=== PATIENT | female | born 1960 | race African-American/Black ===

== ENCOUNTER 2016-11-01 20:26 | Emergency (ER) | payer OTHER ==
[~2016-11-01] VITALS: Ht 157.5 cm; Wt 116.6 kg
--- NOTE | ~2016-11-01 | EKG ---
[place] [address] [facility] [place] [address] ELECTROCARDIOGRAM REPORT Name: PRITI MCLAUGHLIN [id number] Admission: 11/01/16 Attend Phys: Discharge: 11/02/16 Date of : 62 Report #: [id number] THIS REPORT FOR: //name// [facility] ED Test Date: 2016-11-01 Test Time: 20:34:52 Pat Name: PRITI MCLAUGHLIN Department: Room: Gender: F Community Development Coordinator: MZOOK : 1960 Requested By: Amber Painter Order Number: [id number] MD: Nagi Thompson Measurements Intervals [place] Rate: 79 P: 50 IN: 145 QRS: 19 QRSD: 83 T: 11 QT: 364 QTc: 418 Interpretive Statements Sinus rhythm No significant abnormality No previous ECG available for comparison Electronically Signed On 11-02-2016 8:35:11 CDT by Nagi Thompson [email or web address] <ELECTRONICALLY SIGNED> By: Nagi Thompson MD, [facility] 11/02/16 0835 2034 33 Nagi Thompson MD, FACC /EPI
[~2016-11-01 20:26] MED LIST: ASPIR 8181 M1 PO; ATACAND8 MG PO; BENADRYL25 MG PO; CADUET 5 MG-401 EACH PO; DOXYCYCLINE 10100 MG PO; HUMALOG100 UNIT/1 SUBQ; JANUMET 50-1,01 EACH PO; LANTUS100 UNIT/M SUBQ; MEDROLDOSEPACK PO; NEXIUM40 MG PO; NORCO 5-325 TA1 EACH PO; PEPCID20 MG PO; SERTRALINE HCL50 MG PO; TRAMADOL 50 MG50 MG PO
[2016-11-01 20:59] LABS: BASOPHILS 0.9 % (0.0-2.0); EOSINOPHILS 2.5 % (0.0-3.0); HEMATOCRIT 43.2 % (37.0-47.0); HEMOGLOBIN 14.8 gm/dL (12.0-15.0); LYMPHOCYTES 38.5 % (24.0-44.0); MCH 28.9 pg (26.0-34.0); MCHC 34.2 g/dL (28.0-37.0); MCV 84.3 fL (80.0-100.0); MONOCYTES 6.9 % (1.0-8.0); PLATELET COUNT 214 thou/uL (150-400); POLYS 51.2 % (36.0-66.0); RBC 5.13 mil/uL (4.20-5.00); RDW 14.7 % (10.5-14.5); WBC 5.8 thou/uL (4.0-11.0)
[2016-11-01 21:00] LABS: MANUAL DIFF NO
[2016-11-01 21:08] LABS: ANION GAP 7 mmol/L (7-16); BUN 12 mg/dL (7-18); CALCIUM 9.8 mg/dL (8.5-10.1); CHLORIDE 102 mmol/L (98-107); CO2 28 mmol/L (21-32); GLUCOSE 290 mg/dL (70-99); POTASSIUM 4.1 mmol/L (3.5-5.1); SODIUM 137 mmol/L (136-145)
[2016-11-01 21:15] LABS: ALBUMIN 3.2 g/dL (3.4-5.0); ALKALINE PHOSPHATASE 100 U/L (46-116); MAGNESIUM 1.5 mg/dL (1.8-2.4); SGOT 12 U/L (15-37); SGPT 23 U/L (30-65); TOTAL BILIRUBIN 0.2 mg/dL (<0.1-1.0); TOTAL PROTEIN 6.7 g/dL (6.4-8.2); TROPONIN-I < 0.04 ng/mL (<0.04-0.07)
== END 2016-11-02 00:30 | disposition home or self-care (01) ==
LOC: ER 20:26
PROVIDERS: Emergency Medicine
DX: E11.65 Type 2 diabetes mellitus with hyperglycemia (principal); E83.42 Hypomagnesemia; I95.1 Orthostatic hypotension; I25.2 Old myocardial infarction; Z88.8 Allergy status to other drugs, medicaments and biological substances; F17.210 Nicotine dependence, cigarettes, uncomplicated; F10.99 Alcohol use, unspecified with unspecified alcohol-induced disorder

== ENCOUNTER 2017-09-05 04:38 | Emergency (ER) | payer OTHER ==
[~2017-09-05] VITALS: Ht 157.5 cm; Wt 112.0 kg
--- NOTE | ~2017-09-05 | EKG ---
[place] [address] [place] [address] ELECTROCARDIOGRAM REPORT Name: PRITI MCLAUGHLIN Room #: [facility]anna[facility] [id number] Admission: 09/05/17 Attend Phys: Discharge: Date of : 62 Report #: [id number] THIS REPORT FOR: //name// [facility] ED Test Date: 2017-09-05 Test Time: 05:08:00 Pat Name: PRITI MCLAUGHLIN Department: Room: Gender: F Manager Of Training And Development: [facility] : 1960 Requested By: Rustam Whipple Order Number: [id number] MD: Nagi Thompson Measurements Intervals [place] Rate: 93 P: 47 [place]: 140 QRS: 16 QRSD: 82 T: 0 QT: 332 QTc: 413 Interpretive Statements Sinus rhythm Probable left atrial enlargement Borderline T wave abnormalities Compared to ECG 11/01/2016 20:34:52 No significant change was found Electronically Signed On 09-05-2017 7:54:10 CHAIRMAN EMERITUS by Nagi Thompson [email or web address] <ELECTRONICALLY SIGNED> By: Nagi Thompson MD, [facility] 09/05/17 0754 0508 0508 Nagi Thompson MD, FACC /EPI
[2017-09-05 05:05] LABS: URINE BILIRUBIN NEGATIVE (Negative); URINE BLOOD NEGATIVE (Negative); URINE CLARITY SL CLOUDY; URINE COLOR YELLOW; URINE GLUCOSE-RANDOM* 1+ (Negative); URINE KETONES NEGATIVE (Negative); URINE LEUKOCYTES-REFLEX NEGATIVE (Negative); URINE NITRITE-REFLEX NEGATIVE (Negative); URINE PROTEIN (DIPSTICK) TRACE (Negative); URINE UROBILINOGEN 0.2 E.U./dl (0.2-1.0)
[2017-09-05 05:39] LABS: ABSOLUTE NEUTROPHILS 4.1 thou/uL (1.4-8.2); BASOPHILS 0.9 % (0.0-2.0); EOSINOPHILS 1.7 % (0.0-3.0); HEMATOCRIT 44.6 % (37.0-47.0); HEMOGLOBIN 15.3 gm/dL (12.0-15.0); LYMPHOCYTES 35.8 % (24.0-44.0); MCH 28.8 pg (26.0-34.0); MCHC 34.2 g/dL (28.0-37.0); MCV 84.1 fL (80.0-100.0); MONOCYTES 6.6 % (1.0-8.0); PLATELET COUNT 254 thou/uL (150-400); RDW 14.7 % (10.5-14.5); WBC 7.5 thou/uL (4.0-11.0)
[2017-09-05 05:51] LABS: ANION GAP 9 mmol/L (7-16); BUN 15 mg/dL (7-18); CHLORIDE 103 mmol/L (98-107); CO2 29 mmol/L (21-32); CREATININE 1.3 mg/dL (0.6-1.0); GLUCOSE 258 mg/dL (74-106); POTASSIUM 3.7 mmol/L (3.5-5.1); SODIUM 141 mmol/L (136-145)
[2017-09-05 05:58] LABS: ALBUMIN 3.3 g/dL (3.4-5.0); LIPASE 86 U/L (73-393); SGOT 14 U/L (15-37); SGPT 23 U/L (30-65); TOTAL BILIRUBIN 0.3 mg/dL (<0.1-1.0); TROPONIN-I < 0.04 ng/mL (<0.06)
[2017-09-05] MEDS ORDERED: OMEPRAZOLE 20 M20 M1 PO (07:25)
[2017-09-05 07:55] VITALS: BP 118/80
[2017-12-30] MEDS ORDERED: SERTRALINE HCL50 MG PO (03:01)
[2017-12-30] MEDS ORDERED: LIDOCAINE VISC100 ML PO (06:14)
[2017-12-30] MEDS ORDERED: MAALOX ADVANCE355 ML PO (06:14)
[2017-12-30] MEDS ORDERED: ZOFRAN ODT4 MG PO (06:14)
[2018-03-13] MEDS ORDERED: LEVEMIR SUBQ (11:30)
[2018-03-22] MEDS ORDERED: ACYCLOVIR 800800 MG PO (04:52)
[2018-03-22] MEDS ORDERED: CARAFATE 1 GM TA1 G1 PO (04:52)
[2018-04-16] MEDS ORDERED: ANTIVERT25 MG PO (13:53)
[2018-04-16] MEDS ORDERED: ZOFRAN ODT8 MG PO (13:53)
== END 2017-09-05 07:56 | disposition home or self-care (01) ==
LOC: ER 04:38
PROVIDERS: Emergency Medicine
DX: R10.13 Epigastric pain (principal); E11.9 Type 2 diabetes mellitus without complications; I10 Essential (primary) hypertension; M19.90 Unspecified osteoarthritis, unspecified site; Z91.041 Radiographic dye allergy status; Z88.8 Allergy status to other drugs, medicaments and biological substances; F17.210 Nicotine dependence, cigarettes, uncomplicated; Z79.4 Long term (current) use of insulin

== ENCOUNTER 2017-11-29 09:34 | Inpatient (IN) | payer OTHER ==
[~2017-11-29] VITALS: Ht 157.5 cm; Wt 102.1 kg
--- NOTE | ~2017-11-29 | EKG ---
[address] [address] ELECTROCARDIOGRAM REPORT Name: PRITI MCLAUGHLIN Jagjit Room #: 422- ADM IN M.R.#: [id number] Admission: 11/29/17 Attend Phys: Yury Vickers Discharge: Date of : 62 Report #: [id number] THIS REPORT FOR: //name// [facility] Test Date: 2017-11-30 Test Time: 10:26:31 Pat Name: PRITI MCLAUGHLIN Department: Room: 422 Gender: F Quality Auditor: oracio : 1960 Requested By: Yury Vickers Order Number: [id number] MD: Nagi Thompson Measurements Intervals [place] Rate: 77 P: 57 [place]: 135 QRS: 31 QRSD: 84 T: -8 QT: 359 QTc: 407 Interpretive Statements Sinus rhythm Borderline T abnormalities, inferior leads Compared to ECG 09/05/2017 05:08:00 No significant changes Electronically Signed On 11-30-2017 16:48:46 CDT by Nagi Thompson [email or web address] <ELECTRONICALLY SIGNED> By: Nagi Thompson MD, [facility] 11/30/17 1648 D: [id number] Nagi Thompson MD, FACC /EPI
[~2017-11-29 09:34] MED LIST changes: +OMEPRAZOLE 20 M20 M1 PO
[2017-11-29 09:35] VITALS: BP 101/63
[2017-11-29 10:28] LABS: ABSOLUTE NEUTROPHILS 6.5 thou/uL (1.4-8.2); BASOPHILS 0.7 % (0.0-2.0); EOSINOPHILS 0.4 % (0.0-3.0); HEMATOCRIT 46.7 % (37.0-47.0); HEMOGLOBIN 16.1 gm/dL (12.0-15.0); LYMPHOCYTES 15.1 % (24.0-44.0); MCH 28.7 pg (26.0-34.0); MCHC 34.4 g/dL (28.0-37.0); MCV 83.5 fL (80.0-100.0); MONOCYTES 5.7 % (1.0-8.0); PLATELET COUNT 284 thou/uL (150-400); POLYS 78.1 % (36.0-66.0); RBC 5.59 mil/uL (4.20-5.00); WBC 8.3 thou/uL (4.0-11.0)
[2017-11-29 10:37] LABS: CALCIUM 10.8 mg/dL (8.5-10.1); POTASSIUM 3.8 mmol/L (3.5-5.1)
[2017-11-29 10:42] LABS: ALBUMIN 3.5 g/dL (3.4-5.0); TOTAL BILIRUBIN 0.8 mg/dL (<0.1-1.0); TOTAL PROTEIN 7.9 g/dL (6.4-8.2)
[2017-11-29 10:44] LABS: URINE BILIRUBIN 1+ (Negative); URINE BLOOD NEGATIVE (Negative); URINE CLARITY SL CLOUDY; URINE COLOR YELLOW; URINE GLUCOSE-RANDOM* 1+ (Negative); URINE KETONES 1+ (Negative); URINE LEUKOCYTES TRACE (Negative); URINE NITRITE NEGATIVE (Negative); URINE PROTEIN (DIPSTICK) 1+ (Negative); URINE SPECIFIC GRAVITY 1.025 (1.005-1.035); URINE UROBILINOGEN 0.2 E.U./dl (0.2-1.0)
[2017-11-29 10:46] LABS: ICTOTEST (BILI CONFIRMATORY) Negative (Negative)
[2017-11-29 10:53] LABS: HYALINE CASTS 0-3 Few /LPF (None Seen); MUCUS 4-6 Moderate strn/LPF (None Seen); SQUAMOUS >10 Many /LPF (0-3); URINE WBC 0-5 Rare /HPF (0-5)
[2017-11-29 10:54] LABS: BACTERIA 1-9 Few /HPF (None Seen); CRYSTALS None Seen /LPF (None Seen); URINE RBC None Seen /HPF (0-2)
[2017-11-29 11:13] LABS: BE(vivo) -3.2 mmol/L (-2 to +3); HCO3 21.5 mmol/L (22.0-26.0); PCO2 VENOUS 37.9 mmHg (41.0-51.0); PO2 VENOUS 56.8 mmHg (35.0-45.0)
[2017-11-29] MEDS ORDERED: NORVASC10 MG PO (11:24)
[2017-11-29] MEDS ORDERED: ONDANSETRON HCL4 M2 PO (11:25)
[2017-11-29] MEDS ORDERED: PROTONIX40 M1 PO (11:26)
[2017-11-29 11:50] VITALS: BP 119/75
[2017-11-29 12:33] VITALS: BP 108/64
[2017-11-29 13:50] VITALS: BP 120/71
[2017-11-29 18:11] LABS: GLYCOHEMOGLOBIN (HGB A1C) 10.1 % (4.8-5.6)
[2017-11-29 19:38] VITALS: BP 76/43
[2017-11-29 21:03] VITALS: BP 94/57
[2017-11-30 04:10] VITALS: BP 103/68
[2017-11-30 06:21] LABS: HEMATOCRIT 41.1 % (37.0-47.0); MCH 28.4 pg (26.0-34.0); MCHC 33.6 g/dL (28.0-37.0); MCV 84.7 fL (80.0-100.0); RBC 4.85 mil/uL (4.20-5.00); RDW 14.8 % (10.5-14.5); WBC 7.1 thou/uL (4.0-11.0)
[2017-11-30 06:28] LABS: HEMOGLOBIN 13.8 gm/dL (12.0-15.0)
[2017-11-30 06:36] LABS: ALBUMIN 2.8 g/dL (3.4-5.0); CALCIUM 9.8 mg/dL (8.5-10.1); CREATININE 1.4 mg/dL (0.6-1.0); POTASSIUM 4.2 mmol/L (3.5-5.1); TOTAL BILIRUBIN 0.3 mg/dL (<0.1-1.0); TOTAL PROTEIN 6.3 g/dL (6.4-8.2)
[2017-11-30 07:48] VITALS: BP 122/86
[2017-11-30] MEDS ORDERED: HYDROCODON-ACE1 EAC7 PO (09:18)
[2017-11-30] MEDS ORDERED: LANTUS100 UNIT/M SUBQ (09:18)
[2017-11-30] MEDS ORDERED: REGLAN 5 MG TAB5 MG PO (09:19)
[2017-11-30] MEDS ORDERED: CEFUROXIME250 MG PO (09:26)
[2017-11-30 15:48] VITALS: BP 102/65
[2017-11-30 19:05] VITALS: BP 102/65
== END 2017-11-30 20:30 | disposition home or self-care (01) | DRG 638 ==
LOC: ER 09:34 → EROBS 11:21 → 4E 11:21
PROVIDERS: Hospitalist; Physician Assistant
DX: E11.10 Type 2 diabetes mellitus with ketoacidosis without coma (principal); N17.9 Acute kidney failure, unspecified; N39.0 Urinary tract infection, site not specified; K29.70 Gastritis, unspecified, without bleeding; E11.65 Type 2 diabetes mellitus with hyperglycemia; I10 Essential (primary) hypertension; M19.90 Unspecified osteoarthritis, unspecified site; F17.200 Nicotine dependence, unspecified, uncomplicated; K57.90 Diverticulosis of intestine, part unspecified, without perforation or abscess without bleeding; E86.0 Dehydration; Z88.8 Allergy status to other drugs, medicaments and biological substances; I25.2 Old myocardial infarction; Z79.82 Long term (current) use of aspirin; Z79.899 Other long term (current) drug therapy
CPT/HCPCS: 10183

== ENCOUNTER 2017-12-23 17:14 | Emergency (ER) | payer OTHER ==
[~2017-12-23] VITALS: Ht 157.5 cm; Wt 99.8 kg
[~2017-12-23 17:14] MED LIST changes: +CEFUROXIME250 MG PO; +HYDROCODON-ACE1 EAC7 PO; +NORVASC10 MG PO; +ONDANSETRON HCL4 M2 PO; +PROTONIX40 M1 PO; +REGLAN 5 MG TAB5 MG PO
[2017-12-23] MEDS ORDERED: ATORVASTATIN CA40 MG PO (17:31)
[2017-12-23 18:25] LABS: ABSOLUTE NEUTROPHILS 5.1 thou/uL (1.4-8.2); BASOPHILS 0.8 % (0.0-2.0); EOSINOPHILS 1.1 % (0.0-3.0); HEMATOCRIT 41.6 % (37.0-47.0); HEMOGLOBIN 14.1 gm/dL (12.0-15.0); LYMPHOCYTES 19.2 % (24.0-44.0); MCH 28.9 pg (26.0-34.0); MCV 84.9 fL (80.0-100.0); MONOCYTES 5.7 % (1.0-8.0); PLATELET COUNT 264 thou/uL (150-400); POLYS 73.2 % (36.0-66.0); RDW 14.9 % (10.5-14.5); WBC 6.9 thou/uL (4.0-11.0)
[2017-12-23 18:39] LABS: CALCIUM 9.9 mg/dL (8.5-10.1); CREATININE 1.1 mg/dL (0.6-1.0); POTASSIUM 4.2 mmol/L (3.5-5.1)
[2017-12-23 18:44] LABS: ALBUMIN 3.4 g/dL (3.4-5.0); DIRECT BILIRUBIN 0.1 mg/dL (<0.1-0.3); TOTAL BILIRUBIN 0.6 mg/dL (<0.1-1.0); TOTAL PROTEIN 7.3 g/dL (6.4-8.2)
[2017-12-23] MEDS ORDERED: REGLAN 5 MG TAB5 MG PO (19:22)
== END 2017-12-23 19:46 | disposition home or self-care (01) ==
LOC: ER 17:14
PROVIDERS: Emergency Medicine
DX: K21.9 Gastro-esophageal reflux disease without esophagitis (principal); I10 Essential (primary) hypertension; E11.9 Type 2 diabetes mellitus without complications; M19.90 Unspecified osteoarthritis, unspecified site; I25.2 Old myocardial infarction; F17.210 Nicotine dependence, cigarettes, uncomplicated; Z91.041 Radiographic dye allergy status

== ENCOUNTER 2018-02-19 00:48 | Inpatient (IN) | payer OTHER ==
[~2018-02-19] VITALS: Ht 157.5 cm; Wt 103.6 kg
[2018-02-19] VITALS (8 sets, daily range): BP systolic 105–167; BP diastolic 63–100
--- NOTE | ~2018-02-19 | EXE ---
[facility] [place] [address] STRESS ECHOCARDIOGRAM Name: PRITI MCLAUGHLIN Room #: 214-P [facility].#: [id number] Admission: 02/19/18 Attend Phys: Serge Hopper MD Discharge: 02/20/18 Date of : 62 Date of Service: 02/20/18 1734 Report #: [id number] THIS REPORT FOR: //name// APPROVED REPORT Study performed: 02/20/2018 09:01:03 Exam: Stress Echocardiogram Indication: Chest pain, short of breath. Patient Location: In-Patient Stress Nurse: Tami Mata RN Room #: 214 Status: routine Ht: 5 ft 2 in HR: 65 bpm BP: 131/90 mmHg Rhythm: NSR Medical History Medical History: PR Medications: Listed on worksheet Allergies: Listed on worksheet Cardiac Risk Factors: HTN, Hyperlipidemia, DM, Smoking, obesity Procedure The patient underwent an Exercise Stress Test using the Jaspal Protocol. Blood pressure, heart rate, and EKG were monitored. An Echocardiogram was performed by semiconductor processing technician in four stages in quad fashion. At peak stress, four selected images were obtained and placed side by side with resting images for comparison. Stress Test Details Stress Test: Exercise stress testing was performed using a Jaspal protocol. HR Resting HR: 65 bpm Max Heart Rate (APMHR): 164 bpm Max HR Achieved: 179 bpm Target HR (85% APMHR): 139 bpm % of APMHR: 109 Recovery HR: 75 bpm HR response to stress: Normal HR response to stress BP Resting BP: 131/90 mmHg Max BP: 180/80 mmHg [facility] [address] [place] [address] STRESS ECHOCARDIOGRAM Name: LISSETTEPRITI B Room #: 214-P [facility]#: [id number] Admission: 02/19/18 Attend Phys: Serge Hopper MD Discharge: 02/20/18 Date of : 62 Date of Service: 02/20/18 1734 Report #: [id number] Recovery BP: 140/78 mmHg ECG Clinical Reason for Termination: Moderate fatigue Stress Symptoms: Leg pain and short of breath Exercise duration: 4 min sec Highest Stage Achieved: Stage 2: 2.5 mph at 12% grade. Exercise capacity: 7.00 METs Pre-Stress Echo The resting Echocardiogram showed normal left ventricular contractility with an estimated Ejection Fraction of about 60-65%. Left ventricular hypertrophy noted, mild MR, mild TR. Post-Stress Echo The stress Echocardiogram showed normal left ventricular contractility with an estimated Ejection Fraction of about >70%. Conclusion Clinical Response: Non-ischemic Exercise Capacity: Average Stress ECG Response: Non-ischemic Stress Echo Images: Non-ischemic Other Information Study Quality: Good <ELECTRONICALLY SIGNED> By: Emri Lerma MD, FACC 07/09/18 1734 1734 1734 Emir Lerma MD, [facility] /INF
--- NOTE | ~2018-02-19 | EKG ---
[place] [address] [address] [place] [address] ELECTROCARDIOGRAM REPORT Name: LISSETTEPRITI Jagjit Room #: 214-P [facility] IN M.R.#: [id number] Admission: 02/19/18 Attend Phys: Serge Hopper MD Discharge: Date of : 62 Report #: [id number] THIS REPORT FOR: //name// [facility] ED Test Date: 2018-02-19 Test Time: 00:48:21 Pat Name: PRITI MCLAUGHLIN Department: Room: Gender: F Meal Room Hand: LILLI : 1960 Requested By: Rustam Whipple Order Number: [id number] MD: Nagi Thompson Measurements Intervals [place] Rate: 79 P: 56 [place]: 132 QRS: 20 QRSD: 74 T: 3 QT: 367 QTc: 421 Interpretive Statements Sinus rhythm Nonspecific T wave abnormality Baseline wander in lead(s) V2,V5 Compared to ECG 11/30/2017 10:26:31 No significant change was found Electronically Signed On 02-19-2018 14:09:35 CDT by Nagi Thompson [email or web address] <ELECTRONICALLY SIGNED> By: Nagi Thompson MD, [facility] 02/19/18 1409 0048 0048 Nagi Thompson MD, [facility] /EPI
[~2018-02-19 00:48] MED LIST changes: +ATORVASTATIN CA40 MG PO; +LIDOCAINE VISC100 ML PO; +MAALOX ADVANCE355 ML PO; +ZOFRAN ODT4 MG PO
[2018-02-19 01:22] LABS: ABSOLUTE NEUTROPHILS 5.9 thou/uL (1.4-8.2); BASOPHILS 0.6 % (0.0-2.0); EOSINOPHILS 0.8 % (0.0-3.0); HEMATOCRIT 43.1 % (37.0-47.0); HEMOGLOBIN 14.7 gm/dL (12.0-15.0); LYMPHOCYTES 21.2 % (24.0-44.0); MCH 28.8 pg (26.0-34.0); MCHC 34.1 g/dL (28.0-37.0); MCV 84.5 fL (80.0-100.0); MONOCYTES 6.3 % (1.0-8.0); PLATELET COUNT 246 thou/uL (150-400); POLYS 71.1 % (36.0-66.0); RDW 14.9 % (10.5-14.5); WBC 8.3 thou/uL (4.0-11.0)
[2018-02-19 02:07] LABS: CALCIUM 9.6 mg/dL (8.5-10.1); CREATININE 1.2 mg/dL (0.6-1.0); POTASSIUM 3.5 mmol/L (3.5-5.1)
[2018-02-19 02:12] LABS: APTT 23.1 Seconds (24.5-32.8); INR 1.1; PROTIME 10.8 Seconds (9.3-11.4)
[2018-02-19 02:14] LABS: ALBUMIN 3.3 g/dL (3.4-5.0); MAGNESIUM 1.7 mg/dL (1.8-2.4); TOTAL BILIRUBIN 0.5 mg/dL (<0.1-1.0); TOTAL PROTEIN 7.1 g/dL (6.4-8.2)
[2018-02-19] MEDS ORDERED: NORCO 5-325 TA1 EACH PO (03:46)
[2018-02-19 07:19] LABS: CHOLESTEROL 204 mg/dL (<200); HDL CHOLESTEROL 43 mg/dL (>40); LDL CHOLESTEROL 142 mg/dL (<100); TC:HDL 4.7 Ratio (Not establshd); TRIGLYCERIDE 99 mg/dL (<150); VLDL 20 mg/dL (<40)
[2018-02-19 12:19] LABS: URINE BILIRUBIN NEGATIVE (Negative); URINE BLOOD NEGATIVE (Negative); URINE CLARITY CLEAR; URINE COLOR YELLOW; URINE GLUCOSE-RANDOM* NEGATIVE (Negative); URINE KETONES NEGATIVE (Negative); URINE LEUKOCYTES-REFLEX NEGATIVE (Negative); URINE NITRITE-REFLEX NEGATIVE (Negative); URINE PROTEIN (DIPSTICK) NEGATIVE (Negative); URINE UROBILINOGEN 0.2 E.U./dl (0.2-1.0)
[2018-02-19 12:30] LABS: AMP/METHAMP Negative (Negative); BARBITURATES Negative (Negative); BENZODIAZEPINES Negative (Negative); COCAINE Negative (Negative); METHADONE Negative (Negative); OPIATES POSITIVE (Negative); PCP Negative (Negative)
[2018-02-19 16:11] LABS: GLYCOHEMOGLOBIN (HGB A1C) 8.1 % (4.8-5.6)
[2018-02-20 05:29] VITALS: BP 134/81
[2018-02-20 05:56] LABS: CALCIUM 9.2 mg/dL (8.5-10.1); POTASSIUM 3.9 mmol/L (3.5-5.1)
[2018-02-20 07:30] VITALS: BP 172/65
[2018-02-20 11:25] VITALS: BP 123/70
[2018-02-20] MEDS ORDERED: METOPROLOL SUCC50 MG PO (11:47)
[2018-02-20] MEDS ORDERED: COZAAR 50 MG TA50 M2 PO (11:47)
[2018-02-20] MEDS ORDERED: MIRALAX17 GM PO (11:47)
[2018-02-20] MEDS ORDERED: SENNA-TIME S T1 EACH PO (11:54)
[2018-02-20 11:55] VITALS: BP 172/65
[2018-02-20] MEDS ORDERED: WORK RELEASE (14:24)
== END 2018-02-20 12:13 | disposition home or self-care (01) | DRG 74 ==
LOC: ER 00:48 → EROBS 03:19 → 2N 03:58
PROVIDERS: Emergency Medicine; Hospitalist; Nurse Practitioner Family
DX: E11.43 Type 2 diabetes mellitus with diabetic autonomic (poly)neuropathy (principal); R07.89 Other chest pain; I10 Essential (primary) hypertension; M19.90 Unspecified osteoarthritis, unspecified site; I25.10 Atherosclerotic heart disease of native coronary artery without angina pectoris; K31.84 Gastroparesis; K21.9 Gastro-esophageal reflux disease without esophagitis; E11.51 Type 2 diabetes mellitus with diabetic peripheral angiopathy without gangrene; Z60.2 Problems related to living alone; Z79.82 Long term (current) use of aspirin; I25.2 Old myocardial infarction; Z88.8 Allergy status to other drugs, medicaments and biological substances; Z91.041 Radiographic dye allergy status; Z91.013 Allergy to seafood; Z82.49 Family history of ischemic heart disease and other diseases of the circulatory system; Z83.3 Family history of diabetes mellitus; Z87.891 Personal history of nicotine dependence; Z79.899 Other long term (current) drug therapy
CPT/HCPCS: 10081

== ENCOUNTER 2018-02-21 13:22 | Emergency (ER) | payer OTHER ==
[~2018-02-21] VITALS: Ht 157.5 cm; Wt 99.8 kg
--- NOTE | ~2018-02-21 | EKG ---
[place] [address] [place] [address] ELECTROCARDIOGRAM REPORT Name: PRITI MCLAUGHLIN Room #: [facility] [id number] Admission: 02/21/18 Attend Phys: Discharge: 02/21/18 Date of : 62 Report #: [id number] THIS REPORT FOR: //name// [facility] ED Test Date: 2018-02-21 Test Time: 13:18:02 Pat Name: PRITI MCLAUGHLIN Department: Room: Gender: F Roof Slater: LICHA : 1960 Requested By: Jaclyn Pantoja Order Number: [id number] MD: Nagi Thompson Measurements Intervals [place] Rate: 80 P: 59 RI: 135 QRS: 30 QRSD: 74 T: 5 QT: 357 QTc: 412 Interpretive Statements Sinus rhythm Normal tracing Compared to ECG 02/19/2018 00:48:21 T-wave abnormality no longer present Electronically Signed On 02-21-2018 16:37:45 CDT by Nagi Thompson [email or web address] <ELECTRONICALLY SIGNED> By: Nagi Thompson MD, [facility] 02/21/18 1637 1318 1318 Nagi Thompson MD, FACC /EPI
[~2018-02-21 13:22] MED LIST changes: +COZAAR 50 MG TA50 M2 PO; +METOPROLOL SUCC50 MG PO; +MIRALAX17 GM PO; +SENNA-TIME S T1 EACH PO; +WORK RELEASE
[2018-02-21 13:57] LABS: ABSOLUTE NEUTROPHILS 3.8 thou/uL (1.4-8.2); BASOPHILS 0.5 % (0.0-2.0); EOSINOPHILS 1.9 % (0.0-3.0); HEMATOCRIT 41.7 % (37.0-47.0); HEMOGLOBIN 14.1 gm/dL (12.0-15.0); LYMPHOCYTES 22.6 % (24.0-44.0); MCH 28.7 pg (26.0-34.0); MCHC 33.8 g/dL (28.0-37.0); MONOCYTES 6.4 % (1.0-8.0); PLATELET COUNT 251 thou/uL (150-400); POLYS 68.6 % (36.0-66.0); RBC 4.91 mil/uL (4.20-5.00); RDW 15.2 % (10.5-14.5); WBC 5.6 thou/uL (4.0-11.0)
[2018-02-21 14:08] LABS: ANION GAP 10 mmol/L (7-16); BUN 12 mg/dL (7-18); CALCIUM 9.8 mg/dL (8.5-10.1); CHLORIDE 105 mmol/L (98-107); CO2 26 mmol/L (21-32); CREATININE 1.2 mg/dL (0.6-1.0); GLUCOSE 301 mg/dL (74-106); POTASSIUM 3.5 mmol/L (3.5-5.1); SODIUM 141 mmol/L (136-145)
[2018-02-21 14:16] LABS: TROPONIN-I <0.06 ng/mL (<0.06)
== END 2018-02-21 15:44 | disposition home or self-care (01) ==
LOC: ER 13:22
PROVIDERS: Emergency Medicine
DX: R07.9 Chest pain, unspecified (principal); R11.10 Vomiting, unspecified; R61 Generalized hyperhidrosis; R00.2 Palpitations; R10.13 Epigastric pain; F17.210 Nicotine dependence, cigarettes, uncomplicated; E11.9 Type 2 diabetes mellitus without complications; I10 Essential (primary) hypertension; E78.5 Hyperlipidemia, unspecified; I25.10 Atherosclerotic heart disease of native coronary artery without angina pectoris; I25.2 Old myocardial infarction; J44.9 Chronic obstructive pulmonary disease, unspecified; M19.90 Unspecified osteoarthritis, unspecified site; Z88.8 Allergy status to other drugs, medicaments and biological substances; Z91.041 Radiographic dye allergy status; Z91.013 Allergy to seafood

== ENCOUNTER 2018-03-24 13:16 | Inpatient (IN) | payer OTHER ==
[~2018-03-24] VITALS: Ht 157.5 cm; Wt 83.9 kg
--- NOTE | ~2018-03-24 | EKG ---
[place] [address] [place] [address] ELECTROCARDIOGRAM REPORT Name: LISSETTEPRITI Room #: 358-P [facility] IN M.R.#: [id number] Admission: 03/24/18 Attend Phys: Arnaud Napoles MD Discharge: 03/26/18 Date of : 62 Report #: [id number] THIS REPORT FOR: //name// [facility] ED Test Date: 2018-03-24 Test Time: 13:51:56 Pat Name: PRITI MCLAUGHLIN Department: Room: [facility] Gender: F Restaurant Culinary Manager: [facility] : 1960 Requested By: Boris Osullivan Order Number: [id number] MD: Nagi Thompson Measurements Intervals [place] Rate: 78 P: 56 NE: 132 QRS: 41 QRSD: 77 T: 13 QT: 371 QTc: 423 Interpretive Statements Sinus rhythm No significant abnormality Compared to ECG 03/22/2018 04:44:37 No significant abnormality Electronically Signed On 03-26-2018 15:15:16 CDT by Nagi Thompson [email or web address] <ELECTRONICALLY SIGNED> By: Nagi Thompson MD, [facility] 03/26/18 1515 135 50 Nagi Thompson MD, [facility] /EPI
[~2018-03-24 13:16] MED LIST changes: +ACYCLOVIR 800800 MG PO; +CARAFATE 1 GM TA1 G1 PO; +LEVEMIR SUBQ
[2018-03-24 14:16] LABS: ABSOLUTE NEUTROPHILS 5.1 thou/uL (1.4-8.2); BASOPHILS 0.4 % (0.0-2.0); EOSINOPHILS 0.8 % (0.0-3.0); HEMATOCRIT 40.3 % (37.0-47.0); HEMOGLOBIN 13.5 gm/dL (12.0-15.0); LYMPHOCYTES 23.7 % (24.0-44.0); MCH 28.4 pg (26.0-34.0); MCHC 33.5 g/dL (28.0-37.0); MONOCYTES 5.5 % (1.0-8.0); PLATELET COUNT 246 thou/uL (150-400); POLYS 69.6 % (36.0-66.0); RBC 4.74 mil/uL (4.20-5.00); WBC 7.3 thou/uL (4.0-11.0)
[2018-03-24 14:23] LABS: ANION GAP 11 mmol/L (7-16); BUN 9 mg/dL (7-18); CALCIUM 9.3 mg/dL (8.5-10.1); CHLORIDE 102 mmol/L (98-107); CO2 23 mmol/L (21-32); CREATININE 1.1 mg/dL (0.6-1.0); GLUCOSE 248 mg/dL (74-106); SODIUM 136 mmol/L (136-145)
[2018-03-24 14:31] LABS: LIPASE 47 U/L (73-393); SGOT 28 U/L (15-37); SGPT 22 U/L (30-65); TOTAL BILIRUBIN 0.5 mg/dL (<0.1-1.0); TOTAL PROTEIN 6.6 g/dL (6.4-8.2); TROPONIN-I <0.06 ng/mL (<0.06)
[2018-03-24 16:34] LABS: URINE BLOOD NEGATIVE (Negative); URINE CLARITY CLEAR; URINE COLOR YELLOW; URINE GLUCOSE-RANDOM* NEGATIVE (Negative); URINE KETONES NEGATIVE (Negative); URINE LEUKOCYTES-REFLEX NEGATIVE (Negative); URINE NITRITE-REFLEX NEGATIVE (Negative); URINE PROTEIN (DIPSTICK) 1+ (Negative); URINE UROBILINOGEN 0.2 E.U./dl (0.2-1.0)
[2018-03-24 16:37] LABS: ICTOTEST (BILI CONFIRMATORY) Negative (Negative); URINE BILIRUBIN NEGATIVE (Negative)
[2018-03-24 16:41] LABS: SQUAMOUS >10 Many /LPF (0-3)
[2018-03-24 16:42] LABS: BACTERIA-REFLEX 1-9 Few /HPF (None Seen); CASTS None Seen /LPF (None Seen); CRYSTALS None Seen /LPF (None Seen); URINE RBC 0-2 Rare /HPF (0-2); URINE WBC-REFLEX 0-5 Rare /HPF (0-5)
[2018-03-24 17:13] VITALS: BP 144/82
[2018-03-24 17:46] VITALS: BP 170/101
[2018-03-24 18:12] LABS: TSH 0.57 uIU/mL (0.358-3.740)
[2018-03-24 19:26] VITALS: BP 150/82
[2018-03-24 23:58] VITALS: BP 145/85
[2018-03-25 03:30] VITALS: BP 124/70
[2018-03-25 04:22] LABS: HEMATOCRIT 37.4 % (37.0-47.0); HEMOGLOBIN 12.5 gm/dL (12.0-15.0); MCHC 33.5 g/dL (28.0-37.0); MCV 83.7 fL (80.0-100.0); RBC 4.47 mil/uL (4.20-5.00); WBC 6.4 thou/uL (4.0-11.0)
[2018-03-25 04:27] LABS: CALCIUM 8.9 mg/dL (8.5-10.1); CREATININE 0.8 mg/dL (0.6-1.0); MAGNESIUM 1.6 mg/dL (1.8-2.4); POTASSIUM 3.5 mmol/L (3.5-5.1)
[2018-03-25 07:36] VITALS: BP 125/75
[2018-03-25 16:00] VITALS: BP 144/92
[2018-03-25 19:22] VITALS: BP 136/81
[2018-03-26 03:55] VITALS: BP 122/69
[2018-03-26 07:26] LABS: HEMATOCRIT 41.3 % (37.0-47.0); HEMOGLOBIN 13.8 gm/dL (12.0-15.0); MCH 28.3 pg (26.0-34.0); MCHC 33.4 g/dL (28.0-37.0); MCV 84.6 fL (80.0-100.0); RBC 4.88 mil/uL (4.20-5.00); RDW 15.3 % (10.5-14.5); WBC 4.6 thou/uL (4.0-11.0)
[2018-03-26 07:37] LABS: MAGNESIUM 1.8 mg/dL (1.8-2.4); POTASSIUM 3.9 mmol/L (3.5-5.1)
[2018-03-26 08:29] VITALS: BP 132/84
[2018-03-26] MEDS ORDERED: ACYCLOVIR 400400 MG PO (08:36)
[2018-03-26 09:25] VITALS: BP 132/84
[2018-03-27] MEDS ORDERED: PROMS25 WY RECTAL (04:44)
== END 2018-03-26 09:42 | disposition home or self-care (01) | DRG 74 ==
LOC: ER 13:16 → EROBS 16:31 → 3W 17:16
PROVIDERS: Internal Medicine; Physician Assistant
DX: E11.43 Type 2 diabetes mellitus with diabetic autonomic (poly)neuropathy (principal); E87.2 Acidosis; K31.84 Gastroparesis; I10 Essential (primary) hypertension; E78.5 Hyperlipidemia, unspecified; K59.09 Other constipation; K57.90 Diverticulosis of intestine, part unspecified, without perforation or abscess without bleeding; D12.0 Benign neoplasm of cecum; M19.90 Unspecified osteoarthritis, unspecified site; F17.210 Nicotine dependence, cigarettes, uncomplicated; I25.2 Old myocardial infarction; I25.10 Atherosclerotic heart disease of native coronary artery without angina pectoris; K29.70 Gastritis, unspecified, without bleeding; K21.9 Gastro-esophageal reflux disease without esophagitis; J44.9 Chronic obstructive pulmonary disease, unspecified; F32.9 Major depressive disorder, single episode, unspecified; Z79.2 Long term (current) use of antibiotics; Z79.82 Long term (current) use of aspirin; Z79.4 Long term (current) use of insulin; Z79.899 Other long term (current) drug therapy; Z88.8 Allergy status to other drugs, medicaments and biological substances; Z91.041 Radiographic dye allergy status; Z91.013 Allergy to seafood; Z82.49 Family history of ischemic heart disease and other diseases of the circulatory system; Z83.3 Family history of diabetes mellitus
CPT/HCPCS: 10779

== ENCOUNTER 2018-03-27 02:58 | Emergency (ER) | payer OTHER ==
[~2018-03-27] VITALS: Ht 157.5 cm; Wt 83.9 kg
--- NOTE | ~2018-03-27 | EKG ---
[place] [address] [facility] [place] [address] ELECTROCARDIOGRAM REPORT Name: PRITI MCLAUGHLIN [facility] [id number] Admission: 03/27/18 Attend Phys: Discharge: 03/27/18 Date of : 62 Report #: [id number] THIS REPORT FOR: //name// [facility] ED Test Date: 2018-03-27 Test Time: 03:09:35 Pat Name: PRITI MCLAUGHLIN Department: Room: Gender: F Printer Slotter Helper: TAI : 1960 Requested By: Rustam Whipple Order Number: [id number] MD: Nagi Thompson Measurements Intervals [place] Rate: 79 P: 52 [place]: 137 QRS: 40 QRSD: 76 T: 28 QT: 382 QTc: 438 Interpretive Statements Sinus rhythm No significant abnormality Compared to ECG 03/24/2018 13:51:56 No significant changes Electronically Signed On 03-27-2018 9:11:56 CDT by Nagi Thompson [email or web address] <ELECTRONICALLY SIGNED> By: Nagi Thompson MD, [facility] 03/27/18 0911 0309 0309 Nagi Thompson MD, FACC /EPI
[~2018-03-27 02:58] MED LIST changes: +ACYCLOVIR 400400 MG PO
[2018-03-27] MEDS ORDERED: PROMS25 WY RECTAL (04:44)
[2018-03-28] MEDS ORDERED: ZOFRAN ODT4 MG PO (12:05)
[2018-03-28] MEDS ORDERED: TRAMADOL 50 MG50 MG PO (12:50)
== END 2018-03-27 04:57 | disposition home or self-care (01) ==
LOC: ER 02:58
DX: E11.43 Type 2 diabetes mellitus with diabetic autonomic (poly)neuropathy (principal); K31.84 Gastroparesis; G89.29 Other chronic pain; R07.9 Chest pain, unspecified; R10.9 Unspecified abdominal pain; R11.2 Nausea with vomiting, unspecified; I10 Essential (primary) hypertension; J44.9 Chronic obstructive pulmonary disease, unspecified; I25.10 Atherosclerotic heart disease of native coronary artery without angina pectoris; M19.90 Unspecified osteoarthritis, unspecified site; F17.210 Nicotine dependence, cigarettes, uncomplicated; Z88.8 Allergy status to other drugs, medicaments and biological substances; Z91.041 Radiographic dye allergy status; Z91.013 Allergy to seafood; Z79.4 Long term (current) use of insulin

== ENCOUNTER 2018-03-28 09:31 | Emergency (ER) | payer OTHER ==
[~2018-03-28] VITALS: Ht 157.5 cm; Wt 93.0 kg
--- NOTE | ~2018-03-28 | EKG ---
[place] [address] [place] [address] ELECTROCARDIOGRAM REPORT Name: PRITI MCLAUGHLIN [facility] [id number] Admission: 03/28/18 Attend Phys: Discharge: 03/28/18 Date of : 62 Report #: [id number] THIS REPORT FOR: //name// [facility] ED Test Date: 2018-03-28 Test Time: 10:28:08 Pat Name: PRITI MCLAUGHLIN Department: Room: Gender: F Senior Linux Administrator: LICHA : 1960 Requested By: Boris Osullivan Order Number: [id number] MD: Nagi Thompson Measurements Intervals [place] Rate: 73 P: 58 MN: 133 QRS: 22 QRSD: 93 T: -2 QT: 396 QTc: 437 Interpretive Statements Sinus rhythm Probable left atrial enlargement Compared to ECG 03/27/2018 03:09:35 No significant changes Electronically Signed On 03-28-2018 16:44:49 CDT by Nagi Thompson [email or web address] <ELECTRONICALLY SIGNED> By: Nagi Thompson MD, [facility] 03/28/18 1644 1028 1028 Nagi Thompson MD, FACC /EPI
[~2018-03-28 09:31] MED LIST changes: +PROMS25 WY RECTAL
[2018-03-28 10:27] LABS: ABSOLUTE NEUTROPHILS 4.6 thou/uL (1.4-8.2); BASOPHILS 0.8 % (0.0-2.0); EOSINOPHILS 0.8 % (0.0-3.0); HEMATOCRIT 39.9 % (37.0-47.0); HEMOGLOBIN 13.4 gm/dL (12.0-15.0); LYMPHOCYTES 22.4 % (24.0-44.0); MCH 28.1 pg (26.0-34.0); MCHC 33.6 g/dL (28.0-37.0); MCV 83.5 fL (80.0-100.0); MONOCYTES 4.7 % (1.0-8.0); PLATELET COUNT 254 thou/uL (150-400); POLYS 71.3 % (36.0-66.0); RBC 4.78 mil/uL (4.20-5.00); RDW 15.4 % (10.5-14.5); WBC 6.5 thou/uL (4.0-11.0)
[2018-03-28 10:37] LABS: ANION GAP 8 mmol/L (7-16); BUN 7 mg/dL (7-18); CALCIUM 9.7 mg/dL (8.5-10.1); CHLORIDE 101 mmol/L (98-107); CO2 30 mmol/L (21-32); CREATININE 1.1 mg/dL (0.6-1.0); GLUCOSE 273 mg/dL (74-106); POTASSIUM 3.7 mmol/L (3.5-5.1); SODIUM 139 mmol/L (136-145)
[2018-03-28 10:46] LABS: ALBUMIN 3.4 g/dL (3.4-5.0); LIPASE 40 U/L (73-393); SGOT 17 U/L (15-37); SGPT 30 U/L (30-65); TOTAL BILIRUBIN 0.5 mg/dL (<0.1-1.0); TOTAL PROTEIN 6.8 g/dL (6.4-8.2); TROPONIN-I <0.06 ng/mL (<0.06)
[2018-03-28 11:27] LABS: URINE BILIRUBIN NEGATIVE (Negative); URINE BLOOD NEGATIVE (Negative); URINE CLARITY CLEAR; URINE COLOR YELLOW; URINE GLUCOSE-RANDOM* 1+ (Negative); URINE KETONES NEGATIVE (Negative); URINE LEUKOCYTES-REFLEX NEGATIVE (Negative); URINE NITRITE-REFLEX NEGATIVE (Negative); URINE PROTEIN (DIPSTICK) NEGATIVE (Negative); URINE UROBILINOGEN 0.2 E.U./dl (0.2-1.0)
[2018-03-28] MEDS ORDERED: ZOFRAN ODT4 MG PO (12:05)
[2018-03-28] MEDS ORDERED: TRAMADOL 50 MG50 MG PO (12:50)
== END 2018-03-28 12:50 | disposition home or self-care (01) ==
LOC: ER 09:31
PROVIDERS: Physician Assistant
DX: K31.84 Gastroparesis (principal); R11.2 Nausea with vomiting, unspecified; E11.9 Type 2 diabetes mellitus without complications; I10 Essential (primary) hypertension; J44.9 Chronic obstructive pulmonary disease, unspecified; I25.10 Atherosclerotic heart disease of native coronary artery without angina pectoris; M19.90 Unspecified osteoarthritis, unspecified site; F17.210 Nicotine dependence, cigarettes, uncomplicated; Z91.041 Radiographic dye allergy status; Z88.8 Allergy status to other drugs, medicaments and biological substances; Z91.013 Allergy to seafood

== ENCOUNTER 2018-04-06 21:22 | Emergency (ER) | payer OTHER ==
[~2018-04-06] VITALS: Ht 157.5 cm; Wt 93.0 kg
--- NOTE | ~2018-04-06 | EKG ---
[place] [address] [place] [address] ELECTROCARDIOGRAM REPORT Name: PRITI MCLAUGHLIN Room #: [facility] Zahraa#: [id number] Admission: 04/06/18 Attend Phys: Discharge: 04/07/18 Date of : 62 Report #: [id number] THIS REPORT FOR: //name// [facility] ED Test Date: 2018-04-06 Test Time: 22:33:34 Pat Name: PRITI MCLAUGHLIN Department: Room: Gender: F Pst Manager: : 1960 Requested By: Ion Jerez Order Number: [id number] MD: Nagi Thompson Measurements Intervals [place] Rate: 72 P: 61 TN: 132 QRS: 40 QRSD: 81 T: -9 QT: 388 QTc: 425 Interpretive Statements Sinus rhythm Nonspecific T wave abnormality Compared to ECG 03/28/2018 10:28:08 T-wave abnormality now present Electronically Signed On 04-07-2018 8:12:51 CDT by Nagi Thompson [email or web address] <ELECTRONICALLY SIGNED> By: Nagi Thompson MD, [facility] 04/07/18811 32 32 Nagi Thompson MD, FACC /EPI
[2018-04-06 23:13] LABS: HEMATOCRIT 41.8 % (37.0-47.0); HEMOGLOBIN 14.2 gm/dL (12.0-15.0); MCH 28.3 pg (26.0-34.0); MCV 83.2 fL (80.0-100.0); RBC 5.03 mil/uL (4.20-5.00); RDW 15.6 % (10.5-14.5); WBC 7.8 thou/uL (4.0-11.0)
[2018-04-06 23:28] LABS: ANION GAP 11 mmol/L (7-16); BUN 10 mg/dL (7-18); CALCIUM 10.5 mg/dL (8.5-10.1); CHLORIDE 96 mmol/L (98-107); CO2 28 mmol/L (21-32); CREATININE 0.9 mg/dL (0.6-1.0); GLUCOSE 217 mg/dL (74-106); POTASSIUM 3.6 mmol/L (3.5-5.1); SODIUM 135 mmol/L (136-145)
[2018-04-06 23:36] LABS: ALBUMIN 3.5 g/dL (3.4-5.0); SGOT 17 U/L (15-37); SGPT 28 U/L (30-65); TOTAL BILIRUBIN 0.7 mg/dL (<0.1-1.0); TOTAL PROTEIN 7.4 g/dL (6.4-8.2); TROPONIN-I <0.06 ng/mL (<0.06)
== END 2018-04-07 00:07 | disposition home or self-care (01) ==
LOC: ER 21:22
PROVIDERS: Emergency Medicine
DX: R10.13 Epigastric pain (principal); R11.2 Nausea with vomiting, unspecified

== ENCOUNTER 2018-05-17 09:38 | Emergency (ER) | payer OTHER ==
[~2018-05-17] VITALS: Ht 157.5 cm; Wt 92.5 kg
--- NOTE | ~2018-05-17 | EKG ---
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
[~2018-05-17 09:38] MED LIST changes: +ANTIVERT25 MG PO; +ZOFRAN ODT8 MG PO
[2018-05-17 10:12] LABS: ABSOLUTE NEUTROPHILS 4.5 thou/uL (1.4-8.2); EOSINOPHILS 1.6 % (0.0-3.0); HEMATOCRIT 42.5 % (37.0-47.0); HEMOGLOBIN 14.6 gm/dL (12.0-15.0); LYMPHOCYTES 24.8 % (24.0-44.0); MCH 28.8 pg (26.0-34.0); MCHC 34.3 g/dL (28.0-37.0); MCV 84.1 fL (80.0-100.0); MONOCYTES 4.8 % (1.0-8.0); PLATELET COUNT 329 thou/uL (150-400); POLYS 67.8 % (36.0-66.0); RBC 5.05 mil/uL (4.20-5.00); WBC 6.6 thou/uL (4.0-11.0)
[2018-05-17 10:15] LABS: ANION GAP 8 mmol/L (7-16); BUN 8 mg/dL (7-18); CALCIUM 10.2 mg/dL (8.5-10.1); CHLORIDE 102 mmol/L (98-107); CO2 26 mmol/L (21-32); GLUCOSE 267 mg/dL (74-106); POTASSIUM 3.9 mmol/L (3.5-5.1); SODIUM 136 mmol/L (136-145)
[2018-05-17 10:24] LABS: ALBUMIN 3.2 g/dL (3.4-5.0); LIPASE 67 U/L (73-393); SGOT 15 U/L (15-37); SGPT 11 U/L (30-65); TOTAL BILIRUBIN 0.5 mg/dL (<0.1-1.0); TOTAL PROTEIN 7.4 g/dL (6.4-8.2); TROPONIN-I <0.06 ng/mL (<0.06)
[2018-05-17 11:34] LABS: URINE BILIRUBIN NEGATIVE (Negative); URINE BLOOD NEGATIVE (Negative); URINE CLARITY CLEAR; URINE COLOR YELLOW; URINE GLUCOSE-RANDOM* NEGATIVE (Negative); URINE KETONES NEGATIVE (Negative); URINE LEUKOCYTES-REFLEX NEGATIVE (Negative); URINE NITRITE-REFLEX NEGATIVE (Negative); URINE PROTEIN (DIPSTICK) 1+ (Negative); URINE SPECIFIC GRAVITY 1.015 (1.005-1.035); URINE UROBILINOGEN 0.2 E.U./dl (0.2-1.0)
[2018-05-17 11:44] LABS: SQUAMOUS >10 Many /LPF (0-3)
[2018-05-17 11:45] LABS: BACTERIA-REFLEX 1-9 Few /HPF (None Seen); CASTS None Seen /LPF (None Seen); CRYSTALS None Seen /LPF (None Seen); URINE RBC None Seen /HPF (0-2); URINE WBC-REFLEX 0-5 Rare /HPF (0-5)
[2018-05-17] MEDS ORDERED: ZOFRAN ODT4 MG DISSOLVE (11:58)
[2018-05-17] MEDS ORDERED: PROTONIX 20 MG20 M1 PO (11:58)
== END 2018-05-17 12:09 | disposition home or self-care (01) ==
LOC: ER 09:38
PROVIDERS: Physician Assistant
DX: E11.43 Type 2 diabetes mellitus with diabetic autonomic (poly)neuropathy (principal); K31.84 Gastroparesis; G89.29 Other chronic pain; I10 Essential (primary) hypertension; J44.9 Chronic obstructive pulmonary disease, unspecified; I25.10 Atherosclerotic heart disease of native coronary artery without angina pectoris; I25.2 Old myocardial infarction; M19.90 Unspecified osteoarthritis, unspecified site; F17.210 Nicotine dependence, cigarettes, uncomplicated; Z79.899 Other long term (current) drug therapy; Z88.8 Allergy status to other drugs, medicaments and biological substances; Z91.041 Radiographic dye allergy status

== ENCOUNTER 2018-06-07 17:50 | Emergency (ER) | payer OTHER ==
[~2018-06-07] VITALS: Ht 157.5 cm; Wt 88.9 kg
[~2018-06-07 17:50] MED LIST changes: +PROTONIX 20 MG20 M1 PO; +ZOFRAN ODT4 MG DISSOLVE
[2018-06-07] MEDS ORDERED: NAPROSYN500 MG PO (20:07)
[2018-06-07] MEDS ORDERED: ACETAMINOPHEN-1 EAC1 PO (20:07)
[2018-06-07] MEDS ORDERED: ZOFRAN ODT8 MG PO (20:19)
== END 2018-06-07 21:12 | disposition home or self-care (01) ==
LOC: ER 17:50
DX: S20.222A Contusion of left back wall of thorax, initial encounter (principal); R11.2 Nausea with vomiting, unspecified; M54.5 Low back pain; M25.551 Pain in right hip; M25.552 Pain in left hip; G89.29 Other chronic pain; F17.210 Nicotine dependence, cigarettes, uncomplicated; E11.9 Type 2 diabetes mellitus without complications; I10 Essential (primary) hypertension; J44.9 Chronic obstructive pulmonary disease, unspecified; I25.10 Atherosclerotic heart disease of native coronary artery without angina pectoris; M17.0 Bilateral primary osteoarthritis of knee; Z79.4 Long term (current) use of insulin; Z88.8 Allergy status to other drugs, medicaments and biological substances; Z91.041 Radiographic dye allergy status; Z91.013 Allergy to seafood; W10.8XXA Fall (on) (from) other stairs and steps, initial encounter; Y92.89 Other specified places as the place of occurrence of the external cause; Y93.89 Activity, other specified; Y99.8 Other external cause status

== ENCOUNTER 2018-06-19 22:15 | Emergency (ER) | payer OTHER ==
[~2018-06-19] VITALS: Ht 157.5 cm; Wt 90.7 kg
[~2018-06-19 22:15] MED LIST changes: +ACETAMINOPHEN-1 EAC1 PO; +NAPROSYN500 MG PO
[2018-06-19 23:10] LABS: ABSOLUTE NEUTROPHILS 6.7 thou/uL (1.4-8.2); BASOPHILS 1.3 % (0.0-2.0); CALCIUM 10.2 mg/dL (8.5-10.1); EOSINOPHILS 0.4 % (0.0-3.0); HEMATOCRIT 41.9 % (37.0-47.0); HEMOGLOBIN 14.3 gm/dL (12.0-15.0); LYMPHOCYTES 20.1 % (24.0-44.0); MCV 82.2 fL (80.0-100.0); MONOCYTES 3.9 % (1.0-8.0); PLATELET COUNT 301 thou/uL (150-400); POLYS 74.3 % (36.0-66.0); POTASSIUM 3.9 mmol/L (3.5-5.1); RDW 14.8 % (10.5-14.5)
[2018-06-19 23:17] LABS: ALBUMIN 3.5 g/dL (3.4-5.0); DIRECT BILIRUBIN 0.1 mg/dL (<0.1-0.3); TOTAL BILIRUBIN 0.7 mg/dL (<0.1-1.0); TOTAL PROTEIN 7.7 g/dL (6.4-8.2)
[2018-06-20 01:31] LABS: URINE BILIRUBIN NEGATIVE (Negative); URINE BLOOD NEGATIVE (Negative); URINE CLARITY CLEAR; URINE COLOR YELLOW; URINE GLUCOSE-RANDOM* TRACE (Negative); URINE KETONES TRACE (Negative); URINE LEUKOCYTES-REFLEX NEGATIVE (Negative); URINE NITRITE-REFLEX NEGATIVE (Negative); URINE PROTEIN (DIPSTICK) NEGATIVE (Negative); URINE SPECIFIC GRAVITY <= 1.005 (1.005-1.035); URINE UROBILINOGEN 0.2 E.U./dl (0.2-1.0)
[2018-06-20] MEDS ORDERED: ZOFRAN ODT4 MG PO (02:51)
[2018-06-20] MEDS ORDERED: BENTYL 20 MG TA20 M1 PO (02:51)
[2018-06-20] MEDS ORDERED: PROTONIX40 MG PO (02:53)
[2018-06-20 03:05] VITALS: BP 135/66
== END 2018-06-20 03:08 | disposition home or self-care (01) ==
LOC: ER 22:15
PROVIDERS: Emergency Medicine
DX: R10.10 Upper abdominal pain, unspecified (principal); R11.2 Nausea with vomiting, unspecified; I10 Essential (primary) hypertension; J44.9 Chronic obstructive pulmonary disease, unspecified; E11.9 Type 2 diabetes mellitus without complications; M19.90 Unspecified osteoarthritis, unspecified site; F17.210 Nicotine dependence, cigarettes, uncomplicated; Z91.041 Radiographic dye allergy status; Z91.013 Allergy to seafood

== ENCOUNTER 2018-08-06 17:56 | Emergency (ER) | payer OTHER ==
[~2018-08-06] VITALS: Ht 157.5 cm; Wt 93.4 kg
--- NOTE | ~2018-08-06 | EKG ---
[address] [address] ELECTROCARDIOGRAM REPORT Name: LISSETTEPRITI Room #: [facility].#: [id number] Admission: Attend Phys: Discharge: Date of : 62 Report #: [id number] THIS REPORT FOR: //name// 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
[~2018-08-06 17:56] MED LIST changes: +BENTYL 20 MG TA20 M1 PO; +PROTONIX40 MG PO
[2018-08-06 18:47] LABS: ABSOLUTE NEUTROPHILS 3.8 thou/uL (1.4-8.2); BASOPHILS 0.6 % (0.0-2.0); EOSINOPHILS 1.9 % (0.0-3.0); HEMATOCRIT 40.3 % (37.0-47.0); HEMOGLOBIN 13.7 gm/dL (12.0-15.0); LYMPHOCYTES 24.9 % (24.0-44.0); MCH 28.2 pg (26.0-34.0); MCHC 34.1 g/dL (28.0-37.0); MCV 82.9 fL (80.0-100.0); MONOCYTES 4.8 % (1.0-8.0); PLATELET COUNT 230 thou/uL (150-400); POLYS 67.8 % (36.0-66.0); RBC 4.86 mil/uL (4.20-5.00); RDW 15.1 % (10.5-14.5); WBC 5.6 thou/uL (4.0-11.0)
[2018-08-06 18:50] LABS: ANION GAP 7 mmol/L (7-16); BUN 9 mg/dL (7-18); CALCIUM 9.8 mg/dL (8.5-10.1); CHLORIDE 106 mmol/L (98-107); CO2 30 mmol/L (21-32); CREATININE 1.1 mg/dL (0.6-1.0); GLUCOSE 257 mg/dL (74-106); POTASSIUM 3.5 mmol/L (3.5-5.1); SODIUM 143 mmol/L (136-145)
[2018-08-06 18:59] LABS: ALBUMIN 3.1 g/dL (3.4-5.0); SGOT 8 U/L (15-37); SGPT 15 U/L (30-65); TOTAL BILIRUBIN 0.3 mg/dL (<0.1-1.0); TOTAL PROTEIN 6.7 g/dL (6.4-8.2); TROPONIN-I <0.06 ng/mL (<0.06)
[2018-08-06] MEDS ORDERED: REGLAN 10 MG TA10 MG PO (19:35)
[2018-08-06] MEDS ORDERED: PROTONIX40 M1 PO (19:35)
[2018-08-06 20:08] VITALS: BP 131/82
== END 2018-08-06 22:04 | disposition home or self-care (01) ==
LOC: ER 17:56
PROVIDERS: Physician Assistant
DX: K21.9 Gastro-esophageal reflux disease without esophagitis (principal); E11.43 Type 2 diabetes mellitus with diabetic autonomic (poly)neuropathy; K31.84 Gastroparesis; I10 Essential (primary) hypertension; J44.9 Chronic obstructive pulmonary disease, unspecified; I25.10 Atherosclerotic heart disease of native coronary artery without angina pectoris; M19.90 Unspecified osteoarthritis, unspecified site; F17.210 Nicotine dependence, cigarettes, uncomplicated; Z88.8 Allergy status to other drugs, medicaments and biological substances; Z91.041 Radiographic dye allergy status; Z91.013 Allergy to seafood; Z79.4 Long term (current) use of insulin

== ENCOUNTER 2018-08-20 12:42 | Emergency (ER) | payer OTHER ==
[~2018-08-20] VITALS: Ht 157.5 cm; Wt 93.4 kg
[~2018-08-20 12:42] MED LIST changes: +REGLAN 10 MG TA10 MG PO
[2018-08-20] MEDS ORDERED: NAPROSYN500 MG PO (15:19)
[2018-08-20] MEDS ORDERED: TRAMADOL 50 MG50 MG PO (15:19)
[2018-08-20 15:32] VITALS: BP 147/89
== END 2018-08-20 15:35 | disposition home or self-care (01) ==
LOC: ER 12:42
DX: S20.229A Contusion of unspecified back wall of thorax, initial encounter (principal); F17.210 Nicotine dependence, cigarettes, uncomplicated; I10 Essential (primary) hypertension; J44.9 Chronic obstructive pulmonary disease, unspecified; I25.10 Atherosclerotic heart disease of native coronary artery without angina pectoris; M19.90 Unspecified osteoarthritis, unspecified site; I73.9 Peripheral vascular disease, unspecified; E11.43 Type 2 diabetes mellitus with diabetic autonomic (poly)neuropathy; K31.84 Gastroparesis; Z79.4 Long term (current) use of insulin; Z88.8 Allergy status to other drugs, medicaments and biological substances; Z91.041 Radiographic dye allergy status; Z91.013 Allergy to seafood; W18.2XXA Fall in (into) shower or empty bathtub, initial encounter; Y92.002 Bathroom of unspecified non-institutional (private) residence as the place of occurrence of the external cause; Y93.89 Activity, other specified; Y99.8 Other external cause status

== ENCOUNTER 2018-09-08 00:21 | Emergency (ER) | payer OTHER ==
[~2018-09-08] VITALS: Ht 157.5 cm; Wt 92.1 kg
[2018-09-08] MEDS ORDERED: ZOFRAN ODT4 MG DISSOLVE (01:48)
[2018-09-08] MEDS ORDERED: NORCO 5-325 TA1 EACH PO (01:48)
[2018-09-08] MEDS ORDERED: PRILOSEC 20 MG20 MG PO (01:48)
[2018-09-08 02:06] LABS: ABSOLUTE NEUTROPHILS 4.4 thou/uL (1.4-8.2); BASOPHILS 0.5 % (0.0-2.0); EOSINOPHILS 1.3 % (0.0-3.0); HEMATOCRIT 40.6 % (37.0-47.0); HEMOGLOBIN 13.3 gm/dL (12.0-15.0); LYMPHOCYTES 25.5 % (24.0-44.0); MCH 27.1 pg (26.0-34.0); MCHC 32.7 g/dL (28.0-37.0); MCV 82.7 fL (80.0-100.0); MONOCYTES 5.2 % (1.0-8.0); PLATELET COUNT 248 thou/uL (150-400); POLYS 67.5 % (36.0-66.0); RBC 4.92 mil/uL (4.20-5.00); RDW 15.8 % (10.5-14.5); WBC 6.5 thou/uL (4.0-11.0)
[2018-09-08 02:15] LABS: ANION GAP 9 mmol/L (7-16); BUN 12 mg/dL (7-18); CALCIUM 9.3 mg/dL (8.5-10.1); CHLORIDE 105 mmol/L (98-107); CO2 28 mmol/L (21-32); CREATININE 1.1 mg/dL (0.6-1.0); GLUCOSE 217 mg/dL (74-106); POTASSIUM 3.8 mmol/L (3.5-5.1); SODIUM 142 mmol/L (136-145)
[2018-09-08 02:19] LABS: URINE CLARITY CLEAR; URINE COLOR YELLOW
[2018-09-08 02:20] LABS: URINE BILIRUBIN NEGATIVE (Negative); URINE BLOOD NEGATIVE (Negative); URINE GLUCOSE-RANDOM* TRACE (Negative); URINE KETONES NEGATIVE (Negative); URINE LEUKOCYTES-REFLEX NEGATIVE (Negative); URINE NITRITE-REFLEX NEGATIVE (Negative); URINE PROTEIN (DIPSTICK) TRACE (Negative); URINE UROBILINOGEN 0.2 E.U./dl (0.2-1.0)
[2018-09-08 02:24] LABS: ALBUMIN 3.4 g/dL (3.4-5.0); LIPASE 54 U/L (73-393); SGOT 9 U/L (15-37); SGPT 13 U/L (30-65); TOTAL BILIRUBIN 0.4 mg/dL (<0.1-1.0); TROPONIN-I <0.06 ng/mL (<0.06)
[2018-09-08 02:26] VITALS: BP 146/78
--- NOTE | 2018-09-08 09:08 | EKG ---
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
== END 2018-09-08 02:36 | disposition home or self-care (01) ==
LOC: ER 00:21
PROVIDERS: Emergency Medicine
DX: E11.43 Type 2 diabetes mellitus with diabetic autonomic (poly)neuropathy (principal); K31.84 Gastroparesis; R11.2 Nausea with vomiting, unspecified; R07.89 Other chest pain; F17.210 Nicotine dependence, cigarettes, uncomplicated; I10 Essential (primary) hypertension; J44.9 Chronic obstructive pulmonary disease, unspecified; I25.10 Atherosclerotic heart disease of native coronary artery without angina pectoris; M19.90 Unspecified osteoarthritis, unspecified site; I73.9 Peripheral vascular disease, unspecified; Z88.8 Allergy status to other drugs, medicaments and biological substances; Z91.041 Radiographic dye allergy status; Z91.013 Allergy to seafood; Z79.4 Long term (current) use of insulin

== ENCOUNTER 2018-09-15 11:45 | Emergency (ER) | payer OTHER ==
[~2018-09-15] VITALS: Ht 172.7 cm; Wt 102.1 kg
[~2018-09-15 11:45] MED LIST changes: +PRILOSEC 20 MG20 MG PO
[2018-09-15 13:08] LABS: ABSOLUTE NEUTROPHILS 6.5 thou/uL (1.4-8.2); BASOPHILS 0.4 % (0.0-2.0); EOSINOPHILS 0.2 % (0.0-3.0); HEMATOCRIT 42.9 % (37.0-47.0); HEMOGLOBIN 14.3 gm/dL (12.0-15.0); LYMPHOCYTES 21.3 % (24.0-44.0); MCH 27.9 pg (26.0-34.0); MCHC 33.4 g/dL (28.0-37.0); MCV 83.5 fL (80.0-100.0); POLYS 75.1 % (36.0-66.0); RBC 5.13 mil/uL (4.20-5.00); RDW 15.6 % (10.5-14.5); WBC 9.5 thou/uL (4.0-11.0)
[2018-09-15 13:25] LABS: ANION GAP 10 mmol/L (7-16); BUN 13 mg/dL (7-18); CALCIUM 10.2 mg/dL (8.5-10.1); CHLORIDE 103 mmol/L (98-107); CO2 25 mmol/L (21-32); CREATININE 0.9 mg/dL (0.6-1.0); GLUCOSE 198 mg/dL (74-106); POTASSIUM 4.4 mmol/L (3.5-5.1); SODIUM 138 mmol/L (136-145)
[2018-09-15 13:32] LABS: ALBUMIN 3.5 g/dL (3.4-5.0); LIPASE 38 U/L (73-393); SGOT 32 U/L (15-37); SGPT 18 U/L (30-65); TOTAL BILIRUBIN 0.7 mg/dL (<0.1-1.0); TOTAL PROTEIN 7.7 g/dL (6.4-8.2); TROPONIN-I <0.06 ng/mL (<0.06)
[2018-09-15 13:36] LABS: PLATELET COUNT 234 thou/uL (150-400); PLATELET ESTIMATE NORMAL
[2018-09-15] MEDS ORDERED: ONDANSETRON HCL4 M2 PO (13:46)
[2018-09-15] MEDS ORDERED: ULTRAM 50MG TAB50 MG PO (14:46)
[2018-09-15 14:48] VITALS: BP 167/94
--- NOTE | 2018-09-15 16:18 | EKG ---
[place] [address] [place] [address] ELECTROCARDIOGRAM REPORT Name: PRITI MCLAUGHLIN [facility] [id number] Admission: 09/15/18 Attend Phys: Discharge: 09/15/18 Date of : 62 Report #: [id number] THIS REPORT FOR: //name// [facility] ED Test Date: 2018-09-15 Test Time: 11:48:52 Pat Name: PRITI MCLAUGHLIN Department: Room: Gender: F Follow Up Clerk: : 1960 Requested By: Berhane Ayala Order Number: [id number] MD: Nagi Thompson Measurements Intervals [place] Rate: 79 P: 32 [place]: 149 QRS: 16 QRSD: 75 T: 2 QT: 342 QTc: 393 Interpretive Statements Sinus rhythm No significant abnormality Compared to ECG 09/08/2018 00:59:40 No significant change Electronically Signed On 09-15-2018 16:18:51 FINANCIAL INVESTMENT MANAGER by Nagi Thompson [email or web address] <ELECTRONICALLY SIGNED> By: Nagi Thompson MD, [facility] 09/15/18 1618 1148 1148 Nagi Thompson MD, FACC /EPI
== END 2018-09-15 14:49 | disposition home or self-care (01) ==
LOC: ER 11:45
PROVIDERS: Nurse Practitioner
DX: E11.43 Type 2 diabetes mellitus with diabetic autonomic (poly)neuropathy (principal); K31.84 Gastroparesis; R11.2 Nausea with vomiting, unspecified; F17.210 Nicotine dependence, cigarettes, uncomplicated; I10 Essential (primary) hypertension; J44.9 Chronic obstructive pulmonary disease, unspecified; I25.10 Atherosclerotic heart disease of native coronary artery without angina pectoris; M19.90 Unspecified osteoarthritis, unspecified site; I73.9 Peripheral vascular disease, unspecified; Z79.4 Long term (current) use of insulin; Z88.8 Allergy status to other drugs, medicaments and biological substances; Z91.041 Radiographic dye allergy status; Z91.013 Allergy to seafood

== ENCOUNTER 2018-09-20 23:04 | Emergency (ER) | payer OTHER ==
[~2018-09-20] VITALS: Ht 157.5 cm; Wt 92.1 kg
[~2018-09-20 23:04] MED LIST changes: +ULTRAM 50MG TAB50 MG PO
[2018-09-20 23:38] LABS: ABSOLUTE NEUTROPHILS 3.8 thou/uL (1.4-8.2); BASOPHILS 0.9 % (0.0-2.0); HEMATOCRIT 40.8 % (37.0-47.0); HEMOGLOBIN 14.4 gm/dL (12.0-15.0); LYMPHOCYTES 26.5 % (24.0-44.0); MCHC 35.4 g/dL (28.0-37.0); MCV 81.8 fL (80.0-100.0); MONOCYTES 5.4 % (1.0-8.0); PLATELET COUNT 279 thou/uL (150-400); POLYS 65.2 % (36.0-66.0); RBC 4.99 mil/uL (4.20-5.00); RDW 15.8 % (10.5-14.5); WBC 5.8 thou/uL (4.0-11.0)
[2018-09-21 00:05] LABS: CREATININE 1.2 mg/dL (0.6-1.0); POTASSIUM 3.9 mmol/L (3.5-5.1)
[2018-09-21] MEDS ORDERED: TRAMADOL 50 MG50 MG PO (00:33)
[2018-09-21] MEDS ORDERED: PROMS25 WY RECTAL (00:33)
[2018-09-21 00:44] VITALS: BP 138/77
== END 2018-09-21 00:45 | disposition home or self-care (01) ==
LOC: ER 23:04
PROVIDERS: Emergency Medicine
DX: E11.43 Type 2 diabetes mellitus with diabetic autonomic (poly)neuropathy (principal); K31.84 Gastroparesis; I10 Essential (primary) hypertension; J44.9 Chronic obstructive pulmonary disease, unspecified; I25.10 Atherosclerotic heart disease of native coronary artery without angina pectoris; M19.90 Unspecified osteoarthritis, unspecified site; I73.9 Peripheral vascular disease, unspecified; F17.210 Nicotine dependence, cigarettes, uncomplicated; Z88.8 Allergy status to other drugs, medicaments and biological substances; Z79.4 Long term (current) use of insulin; Z91.041 Radiographic dye allergy status; Z91.013 Allergy to seafood

== ENCOUNTER 2018-10-04 11:54 | Emergency (ER) | payer OTHER ==
[~2018-10-04] VITALS: Ht 162.6 cm; Wt 93.4 kg
[2018-10-04 12:39] LABS: ABSOLUTE NEUTROPHILS 4.5 thou/uL (1.4-8.2); BASOPHILS 0.9 % (0.0-2.0); EOSINOPHILS 1.6 % (0.0-3.0); HEMATOCRIT 41.3 % (37.0-47.0); HEMOGLOBIN 13.6 gm/dL (12.0-15.0); LYMPHOCYTES 21.8 % (24.0-44.0); MCH 27.5 pg (26.0-34.0); MCV 83.3 fL (80.0-100.0); MONOCYTES 4.2 % (1.0-8.0); PLATELET COUNT 300 thou/uL (150-400); POLYS 71.5 % (36.0-66.0); RBC 4.96 mil/uL (4.20-5.00); RDW 15.4 % (10.5-14.5); WBC 6.3 thou/uL (4.0-11.0)
[2018-10-04 12:51] LABS: CALCIUM 9.9 mg/dL (8.5-10.1); POTASSIUM 4.2 mmol/L (3.5-5.1)
[2018-10-04 12:56] LABS: ALBUMIN 3.2 g/dL (3.4-5.0); TOTAL BILIRUBIN 0.3 mg/dL (<0.1-1.0); TOTAL PROTEIN 6.8 g/dL (6.4-8.2)
[2018-10-04 13:22] LABS: URINE BILIRUBIN NEGATIVE (Negative); URINE BLOOD NEGATIVE (Negative); URINE CLARITY CLEAR; URINE COLOR YELLOW; URINE GLUCOSE-RANDOM* NEGATIVE (Negative); URINE KETONES NEGATIVE (Negative); URINE LEUKOCYTES-REFLEX NEGATIVE (Negative); URINE NITRITE-REFLEX NEGATIVE (Negative); URINE PROTEIN (DIPSTICK) NEGATIVE (Negative); URINE SPECIFIC GRAVITY 1.015 (1.005-1.035); URINE UROBILINOGEN 0.2 E.U./dl (0.2-1.0)
[2018-10-04 13:38] LABS: ACETEST (KETONE CONFIRMATORY) Small (Negative)
[2018-10-04 13:44] VITALS: BP 132/74
== END 2018-10-04 13:40 | disposition home or self-care (01) ==
LOC: ER 11:54
PROVIDERS: Nurse Practitioner Family
DX: G89.29 Other chronic pain (principal); R10.11 Right upper quadrant pain; R10.84 Generalized abdominal pain; R10.13 Epigastric pain; E11.9 Type 2 diabetes mellitus without complications; I10 Essential (primary) hypertension; J44.9 Chronic obstructive pulmonary disease, unspecified; I25.10 Atherosclerotic heart disease of native coronary artery without angina pectoris; M19.90 Unspecified osteoarthritis, unspecified site; I73.9 Peripheral vascular disease, unspecified; K31.84 Gastroparesis; F17.210 Nicotine dependence, cigarettes, uncomplicated; Z79.4 Long term (current) use of insulin; Z91.041 Radiographic dye allergy status; Z88.8 Allergy status to other drugs, medicaments and biological substances; Z91.018 Allergy to other foods

== ENCOUNTER 2018-10-12 16:46 | Inpatient (IN) | payer OTHER ==
[~2018-10-12] VITALS: Ht 157.5 cm; Wt 93.4 kg
[2018-10-12 16:47] VITALS: BP 140/105
[2018-10-12 17:33] LABS: ABSOLUTE NEUTROPHILS 5.3 thou/uL (1.4-8.2); BASOPHILS 0.9 % (0.0-2.0); EOSINOPHILS 1.1 % (0.0-3.0); HEMATOCRIT 42.1 % (37.0-47.0); HEMOGLOBIN 14.4 gm/dL (12.0-15.0); MCH 28.2 pg (26.0-34.0); MCHC 34.1 g/dL (28.0-37.0); MCV 82.6 fL (80.0-100.0); MONOCYTES 5.6 % (1.0-8.0); PLATELET COUNT 322 thou/uL (150-400); POLYS 69.4 % (36.0-66.0); RDW 15.2 % (10.5-14.5); WBC 7.6 thou/uL (4.0-11.0)
[2018-10-12 17:42] LABS: ANION GAP 10 mmol/L (7-16); BUN 17 mg/dL (7-18); CALCIUM 10.7 mg/dL (8.5-10.1); CHLORIDE 100 mmol/L (98-107); CO2 27 mmol/L (21-32); CREATININE 1.3 mg/dL (0.6-1.0); GLUCOSE 250 mg/dL (74-106); POTASSIUM 3.6 mmol/L (3.5-5.1); SODIUM 137 mmol/L (136-145)
[2018-10-12 17:51] LABS: ALBUMIN 3.8 g/dL (3.4-5.0); LIPASE 50 U/L (73-393); SGOT 10 U/L (15-37); SGPT 14 U/L (30-65); TOTAL BILIRUBIN 0.6 mg/dL (<0.1-1.0); TOTAL PROTEIN 7.6 g/dL (6.4-8.2); TROPONIN-I <0.06 ng/mL (<0.06)
[2018-10-12 20:13] VITALS: BP 146/76
[2018-10-12 20:26] VITALS: BP 146/76
[2018-10-12 21:00] VITALS: BP 157/90
[2018-10-13 00:32] VITALS: BP 159/88
--- NOTE | 2018-10-13 01:54 | NUR ---
2129 - PT ADMITTED TO ROOM 463. WALKED TO BED FROM WHEELCHAIR. ORIENTED TO ROOM, UNIT, CALL LIGHT AND CONTROLS. MED REC, ADMISSION PROFILE AND ASSESSMENT COMPLETED. PT HAS S/O ABD PAIN. NOTIFIED BYRON ALVARADO. PAIN MEDICATIONS GIVEN, FLUIDS STARTED. PT RESTING COMFORTABLY IN BED. DENIES NAUSEA AT THIS TIME.
[2018-10-13 07:20] LABS: CALCIUM 9.4 mg/dL (8.5-10.1); CREATININE 0.7 mg/dL (0.6-1.0); POTASSIUM 4.5 mmol/L (3.5-5.1)
[2018-10-13 08:11] VITALS: BP 138/82
[2018-10-13] MEDS ORDERED: PREDNISONE 20 M20 MG PO (09:00)
[2018-10-13] MEDS ORDERED: VOLTAREN GEL 1100 G2 TOP (09:00)
--- NOTE | 2018-10-13 11:29 | EKG ---
[address] [place] [address] ELECTROCARDIOGRAM REPORT Name: LISSETTEPRITI Jagjit Room #: 463-P ADM IN M.R.#: [id number] ������������������ Admission: 10/12/18 ������������������ Attend Phys: Howie Robison MD Discharge: ������������������ Date of : 62 Report #: [id number] ����������������������������������������������������������������� [id number] THIS REPORT FOR: //name// [facility] ED Test Date: 2018-10-12 Test Time: 17:01:10 Pat Name: PRITI MCLAUGHLIN Department: Room: 463 Gender: F Rubber Cutter And Shape Carver: JONATHAN : 1960 Requested By: Norman Sal Order Number: [id number] MD: Yobany Jackman Measurements Intervals [place] Rate: 92 P: 57 [place]: 135 QRS: 9 QRSD: 88 T: -22 QT: 363 QTc: 450 Interpretive Statements Sinus rhythm left atrial enlargement Baseline wander Nonspecific ST-T wave changes Compared to ECG 09/15/2018 11:48:52 No significant changes Electronically Signed On 10-13-2018 11:28:51 MEAT AND SEAFOOD MANAGER by Yobany Jackman [email or web address] ��������������������������������������������� <ELECTRONICALLY SIGNED> ���������������������������������������� By: Yobany Jackman MD ��������������������������������������������� 10/13/18 1128 00 00 Yobany Jackman MD /EPI
[2018-10-13] MEDS ORDERED: VENTOLIN HFA 1818 GM INH (13:47)
--- NOTE | 2018-10-13 14:48 | NUR ---
PT ADMITTED RELATED TO N/V. CM REVIEWED CHART AND SPOKE WITH CARE TEAM. CM MET WITH PT AT BEDSIDE THIS DAY. PT IS A&O X4. CM ROLE INTRODUCED. PT INDICATED SHE LIVES IN AN APARTMENT AND THAT HER COUSIN IS STAYING WITH HER RIGHT NOW. PT INDICATED THERE ARE 18 STEPS TO ENTER AND NO STEPS INSIDE. 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 PT INDICATED NO DME OR HH HX. A FACE SHEE WAS SENT TO [facility] FOR THEM TO SEE IF THEY CAN ASSIT PT. CARE TEAM INDICATED THAT PT IS MEDICALLY STABLE TO DISCHARGE HOME THIS DAY WITH NO NEEDS. PT INDICATED SHE WASN'T ABLE TO PAY FOR TRANSPORT HOME. CM REQUESTED AND RECEIVED PERMISSION TO [facility] [employer] RIDE TRIP NUMBER [id number]. NO OTHER CM INTERVENTION INDICATED AT THIS TIME. CASE CLOSED.
[2018-10-13 15:42] VITALS: BP 138/82
[2018-10-13 15:57] VITALS: BP 134/52
--- NOTE | 2018-10-13 16:00 | NUR ---
PATIENT ALERT AND ORIENTED. PATIENT DISCHARGED TO HOME IN STABLE CONDITION WITH ALL PERSONAL BELONGINGS, DISCHARGE ORDERS, PRESCRIPTIONS AND INSTRUCTIONS. PATIENT TRANSPORTED HOME VIA PUBLIC TRANSPORTATION.
[2018-10-13 16:47] VITALS: BP 138/82
== END 2018-10-13 17:10 | disposition home or self-care (01) | DRG 192 ==
LOC: ER 16:46 → 4W 19:59 → EROBS 19:59 → 4W 20:26
PROVIDERS: Nurse Practitioner Family; Physician Assistant; ADMIT Hospitalist
DX: J44.1 Chronic obstructive pulmonary disease with (acute) exacerbation (principal); I10 Essential (primary) hypertension; I25.10 Atherosclerotic heart disease of native coronary artery without angina pectoris; F17.210 Nicotine dependence, cigarettes, uncomplicated; F32.9 Major depressive disorder, single episode, unspecified; M19.90 Unspecified osteoarthritis, unspecified site; E11.51 Type 2 diabetes mellitus with diabetic peripheral angiopathy without gangrene; Z82.49 Family history of ischemic heart disease and other diseases of the circulatory system; I25.2 Old myocardial infarction; Z88.8 Allergy status to other drugs, medicaments and biological substances; Z91.041 Radiographic dye allergy status; Z91.013 Allergy to seafood; Z83.3 Family history of diabetes mellitus; Z71.6 Tobacco abuse counseling; Z79.899 Other long term (current) drug therapy
CPT/HCPCS: 10045

== ENCOUNTER 2018-11-09 17:29 | Emergency (ER) | payer OTHER ==
[~2018-11-09] VITALS: Ht 157.5 cm; Wt 93.4 kg
[~2018-11-09 17:29] MED LIST changes: +PREDNISONE 20 M20 MG PO; +VENTOLIN HFA 1818 GM INH; +VOLTAREN GEL 1100 G2 TOP
[2018-11-09 17:50] LABS: URINE BILIRUBIN NEGATIVE (Negative); URINE BLOOD NEGATIVE (Negative); URINE CLARITY CLEAR; URINE COLOR YELLOW; URINE GLUCOSE-RANDOM* NEGATIVE (Negative); URINE KETONES NEGATIVE (Negative); URINE LEUKOCYTES-REFLEX NEGATIVE (Negative); URINE NITRITE-REFLEX NEGATIVE (Negative); URINE PROTEIN (DIPSTICK) TRACE (Negative); URINE SPECIFIC GRAVITY 1.015 (1.005-1.035); URINE UROBILINOGEN 0.2 E.U./dl (0.2-1.0)
[2018-11-09 17:59] LABS: CASTS None Seen /LPF (None Seen); CRYSTALS None Seen /LPF (None Seen); SQUAMOUS 4-10 Moderate /LPF (0-3)
[2018-11-09 18:02] LABS: URINE RBC None Seen /HPF (0-2); URINE WBC-REFLEX 0-5 Rare /HPF (0-5)
[2018-11-09 18:08] LABS: CALCIUM 9.8 mg/dL (8.5-10.1); CREATININE 0.9 mg/dL (0.6-1.0); POTASSIUM 4.6 mmol/L (3.5-5.1)
[2018-11-09 18:14] LABS: ALBUMIN 3.4 g/dL (3.4-5.0); TOTAL BILIRUBIN 0.6 mg/dL (<0.1-1.0); TOTAL PROTEIN 7.5 g/dL (6.4-8.2)
[2018-11-09 18:22] LABS: BASOPHILS 1.2 % (0.0-2.0); HEMATOCRIT 39.5 % (37.0-47.0); HEMOGLOBIN 13.5 gm/dL (12.0-15.0); LYMPHOCYTES 26.9 % (24.0-44.0); MCH 28.1 pg (26.0-34.0); MCHC 34.1 g/dL (28.0-37.0); MCV 82.3 fL (80.0-100.0); MONOCYTES 6.1 % (1.0-8.0); PLATELET COUNT 310 thou/uL (150-400); POLYS 64.8 % (36.0-66.0); RDW 16.4 % (10.5-14.5); WBC 6.2 thou/uL (4.0-11.0)
[2018-11-09] MEDS ORDERED: PHENERGAN 25 MG25 M1 PO (20:57)
[2018-11-09 21:17] VITALS: BP 116/60
--- NOTE | 2018-11-10 08:29 | EKG ---
[place] [address] [facility] [place] [address] ELECTROCARDIOGRAM REPORT Name: PRITI MCLAUGHLIN Room #: [facility]#: [id number] ������������������ Admission: 11/09/18 ������������������ Attend Phys: Discharge: 11/09/18 ������������������ Date of : 62 Report #: [id number] ����������������������������������������������������������������� [id number] THIS REPORT FOR: //name// [facility] ED Test Date: 2018-11-09 Test Time: 19:03:59 Pat Name: PRITI MCLAUGHLIN Department: Room: Gender: F Anchor Operator: kf : 1960 Requested By: Norman Sal Order Number: [id number] MD: Nagi Thompson Measurements Intervals [place] Rate: 89 P: 73 ME: 135 QRS: 44 QRSD: 69 T: 12 QT: 366 QTc: 446 Interpretive Statements Sinus rhythm No significant abnormality No previous ECGs available for comparison Electronically Signed On 11-10-2018 8:29:23 CDT by Nagi Thompson [email or web address] ��������������������������������������������� <ELECTRONICALLY SIGNED> ���������������������������������������� By: Nagi Thompson MD, [facility] ��������������������������������������������� 11/10/18 0829 1903 1903 Nagi Thompson MD, FACC /EPI
== END 2018-11-09 21:10 | disposition home or self-care (01) ==
LOC: ER 17:29
PROVIDERS: Physician Assistant
DX: E11.43 Type 2 diabetes mellitus with diabetic autonomic (poly)neuropathy (principal); K31.84 Gastroparesis; F17.210 Nicotine dependence, cigarettes, uncomplicated; K21.9 Gastro-esophageal reflux disease without esophagitis; I10 Essential (primary) hypertension; J44.9 Chronic obstructive pulmonary disease, unspecified; I25.10 Atherosclerotic heart disease of native coronary artery without angina pectoris; F32.9 Major depressive disorder, single episode, unspecified; I73.9 Peripheral vascular disease, unspecified; Z88.8 Allergy status to other drugs, medicaments and biological substances; Z91.041 Radiographic dye allergy status; Z91.013 Allergy to seafood; Z79.4 Long term (current) use of insulin

== ENCOUNTER 2018-11-11 13:52 | Emergency (ER) | payer OTHER ==
[~2018-11-11] VITALS: Ht 157.5 cm; Wt 93.4 kg
[~2018-11-11 13:52] MED LIST changes: +PHENERGAN 25 MG25 M1 PO
[2018-11-11 15:08] LABS: ABSOLUTE NEUTROPHILS 7.2 thou/uL (1.4-8.2); BASOPHILS 0.4 % (0.0-2.0); EOSINOPHILS 0.1 % (0.0-3.0); HEMOGLOBIN 15.9 gm/dL (12.0-15.0); LYMPHOCYTES 13.3 % (24.0-44.0); MCH 28.2 pg (26.0-34.0); MCHC 33.9 g/dL (28.0-37.0); MCV 83.1 fL (80.0-100.0); MONOCYTES 6.7 % (1.0-8.0); PLATELET COUNT 307 thou/uL (150-400); POLYS 79.5 % (36.0-66.0); RBC 5.65 mil/uL (4.20-5.00); RDW 15.9 % (10.5-14.5); WBC 9.1 thou/uL (4.0-11.0)
[2018-11-11 15:15] LABS: ANION GAP 10 mmol/L (7-16); BUN 12 mg/dL (7-18); CALCIUM 10.7 mg/dL (8.5-10.1); CHLORIDE 96 mmol/L (98-107); CO2 29 mmol/L (21-32); CREATININE 1.1 mg/dL (0.6-1.0); GLUCOSE 172 mg/dL (74-106); POTASSIUM 3.1 mmol/L (3.5-5.1); SODIUM 135 mmol/L (136-145)
[2018-11-11 15:34] LABS: ALBUMIN 3.8 g/dL (3.4-5.0); LIPASE 75 U/L (73-393); SGOT 14 U/L (15-37); SGPT 17 U/L (30-65); TOTAL BILIRUBIN 0.7 mg/dL (<0.1-1.0); TOTAL PROTEIN 8.1 g/dL (6.4-8.2); TROPONIN-I <0.06 ng/mL (<0.06)
[2018-11-11 15:40] LABS: URINE BILIRUBIN NEGATIVE (Negative); URINE BLOOD NEGATIVE (Negative); URINE CLARITY CLEAR; URINE COLOR YELLOW; URINE GLUCOSE-RANDOM* NEGATIVE (Negative); URINE KETONES TRACE (Negative); URINE LEUKOCYTES-REFLEX NEGATIVE (Negative); URINE NITRITE-REFLEX NEGATIVE (Negative); URINE PROTEIN (DIPSTICK) 1+ (Negative); URINE UROBILINOGEN 0.2 E.U./dl (0.2-1.0)
[2018-11-11 15:50] LABS: CASTS None Seen /LPF (None Seen); CRYSTALS None Seen /LPF (None Seen); SQUAMOUS >10 Many /LPF (0-3); URINE RBC None Seen /HPF (0-2); URINE WBC-REFLEX 0-5 Rare /HPF (0-5)
[2018-11-11 16:23] VITALS: BP 147/93
--- NOTE | 2018-11-12 11:49 | EKG ---
[facility] [place] [address] ELECTROCARDIOGRAM REPORT Name: PRITI MCLAUGHLIN Room [facility]: [facility] [id number] ������������������ Admission: 11/11/18 ������������������ Attend Phys: Discharge: 11/11/18 ������������������ Date of : 62 Report #: [id number] ����������������������������������������������������������������� [id number] THIS REPORT FOR: //name// 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: : 1960 Requested By: Rustam Whipple Order Number: [id number] MD: Nagi Thompson Measurements Intervals [place] Rate: 95 P: 70 DC: 122 QRS: 36 QRSD: 79 T: -2 QT: 358 QTc: 450 Interpretive Statements Sinus rhythm Probable left atrial enlargement Borderline T wave abnormalities Baseline wander in lead(s) II Compared to ECG 11/09/2018 19:03:59 T-wave abnormality now present Electronically Signed On 11-12-2018 11:49:13 CDT by Nagi Thompson [email or web address] ��������������������������������������������� <ELECTRONICALLY SIGNED> ���������������������������������������� By: Nagi Thompson MD, [facility] ��������������������������������������������� 11/12/18 1149 1543 1543 Nagi Thompson MD, [facility] /EPI
== END 2018-11-11 16:30 | disposition home or self-care (01) ==
LOC: ER 13:52
PROVIDERS: Emergency Medicine
DX: K31.84 Gastroparesis (principal); E87.6 Hypokalemia; R11.2 Nausea with vomiting, unspecified; E11.43 Type 2 diabetes mellitus with diabetic autonomic (poly)neuropathy; K21.9 Gastro-esophageal reflux disease without esophagitis; I10 Essential (primary) hypertension; J44.9 Chronic obstructive pulmonary disease, unspecified; I25.10 Atherosclerotic heart disease of native coronary artery without angina pectoris; I25.2 Old myocardial infarction; M19.90 Unspecified osteoarthritis, unspecified site; E11.51 Type 2 diabetes mellitus with diabetic peripheral angiopathy without gangrene; F17.210 Nicotine dependence, cigarettes, uncomplicated; Z79.4 Long term (current) use of insulin; Z88.8 Allergy status to other drugs, medicaments and biological substances; Z91.041 Radiographic dye allergy status; Z79.899 Other long term (current) drug therapy

== ENCOUNTER 2019-02-02 15:12 | Emergency (ER) | payer OTHER ==
[~2019-02-02] VITALS: Ht 157.5 cm; Wt 95.3 kg
[2019-02-02 17:19] LABS: ABSOLUTE NEUTROPHILS 8.1 thou/uL (1.4-8.2); BASOPHILS 0.8 % (0.0-2.0); HEMOGLOBIN 14.4 gm/dL (12.0-15.0); LYMPHOCYTES 6.8 % (24.0-44.0); MCH 27.5 pg (26.0-34.0); MCHC 34.2 g/dL (28.0-37.0); MCV 80.3 fL (80.0-100.0); MONOCYTES 1.6 % (1.0-8.0); PLATELET COUNT 254 thou/uL (150-400); POLYS 90.8 % (36.0-66.0); RBC 5.23 mil/uL (4.20-5.00); RDW 16.9 % (10.5-14.5); WBC 8.9 thou/uL (4.0-11.0)
[2019-02-02 17:26] LABS: CALCIUM 9.9 mg/dL (8.5-10.1); CREATININE 1.1 mg/dL (0.6-1.0); POTASSIUM 3.8 mmol/L (3.5-5.1)
[2019-02-02 17:31] LABS: URINE BILIRUBIN NEGATIVE (Negative); URINE BLOOD NEGATIVE (Negative); URINE CLARITY CLEAR; URINE COLOR YELLOW; URINE GLUCOSE-RANDOM* 3+ (Negative); URINE KETONES TRACE (Negative); URINE LEUKOCYTES-REFLEX NEGATIVE (Negative); URINE NITRITE-REFLEX NEGATIVE (Negative); URINE PROTEIN (DIPSTICK) NEGATIVE (Negative); URINE SPECIFIC GRAVITY <= 1.005 (1.005-1.035); URINE UROBILINOGEN 0.2 E.U./dl (0.2-1.0)
[2019-02-02 17:33] LABS: ALBUMIN 3.7 g/dL (3.4-5.0); TOTAL BILIRUBIN 0.6 mg/dL (<0.1-1.0); TOTAL PROTEIN 7.9 g/dL (6.4-8.2)
[2019-02-02] MEDS ORDERED: TRAMADOL 50 MG50 MG PO ×3 (20:44→21:09)
[2019-02-02 21:12] VITALS: BP 174/94
== END 2019-02-02 21:06 | disposition home or self-care (01) ==
LOC: ER 15:12
PROVIDERS: Emergency Medicine
DX: R10.13 Epigastric pain (principal); R10.84 Generalized abdominal pain; E11.65 Type 2 diabetes mellitus with hyperglycemia; Z91.14 Patient's other noncompliance with medication regimen; K21.9 Gastro-esophageal reflux disease without esophagitis; I10 Essential (primary) hypertension; J44.9 Chronic obstructive pulmonary disease, unspecified; I25.10 Atherosclerotic heart disease of native coronary artery without angina pectoris; F32.9 Major depressive disorder, single episode, unspecified; M19.90 Unspecified osteoarthritis, unspecified site; E11.43 Type 2 diabetes mellitus with diabetic autonomic (poly)neuropathy; K31.84 Gastroparesis; F17.210 Nicotine dependence, cigarettes, uncomplicated; Z79.4 Long term (current) use of insulin; Z91.041 Radiographic dye allergy status; Z91.013 Allergy to seafood; Z88.8 Allergy status to other drugs, medicaments and biological substances

== ENCOUNTER 2019-03-02 19:35 | Emergency (ER) | payer OTHER ==
[~2019-03-02] VITALS: Ht 157.5 cm; Wt 95.3 kg
[2019-03-02 22:15] LABS: ABSOLUTE NEUTROPHILS 7.6 thou/uL (1.4-8.2); BASOPHILS 0.7 % (0.0-2.0); EOSINOPHILS 1.3 % (0.0-3.0); HEMATOCRIT 42.9 % (37.0-47.0); HEMOGLOBIN 14.6 gm/dL (12.0-15.0); LYMPHOCYTES 21.5 % (24.0-44.0); MCH 27.6 pg (26.0-34.0); MCV 81.2 fL (80.0-100.0); MONOCYTES 4.6 % (1.0-8.0); PLATELET COUNT 346 thou/uL (150-400); POLYS 71.9 % (36.0-66.0); RBC 5.29 mil/uL (4.20-5.00); RDW 16.6 % (10.5-14.5); WBC 10.5 thou/uL (4.0-11.0)
[2019-03-02 22:26] LABS: CALCIUM 8.4 mg/dL (8.5-10.1); CREATININE 0.8 mg/dL (0.6-1.0); POTASSIUM 3.6 mmol/L (3.5-5.1)
[2019-03-03 01:14] VITALS: BP 173/92
== END 2019-03-03 01:18 | disposition home or self-care (01) ==
LOC: ER 19:35
PROVIDERS: Emergency Medicine
DX: L03.211 Cellulitis of face (principal); E11.43 Type 2 diabetes mellitus with diabetic autonomic (poly)neuropathy; K31.84 Gastroparesis; F17.210 Nicotine dependence, cigarettes, uncomplicated; K21.9 Gastro-esophageal reflux disease without esophagitis; I10 Essential (primary) hypertension; J44.9 Chronic obstructive pulmonary disease, unspecified; I25.10 Atherosclerotic heart disease of native coronary artery without angina pectoris; F32.9 Major depressive disorder, single episode, unspecified; Z88.8 Allergy status to other drugs, medicaments and biological substances; Z91.013 Allergy to seafood; Z91.041 Radiographic dye allergy status

== ENCOUNTER 2019-03-24 07:51 | Emergency (ER) | payer OTHER ==
[~2019-03-24] VITALS: Ht 157.5 cm; Wt 95.3 kg
[2019-03-24 08:14] LABS: URINE BILIRUBIN NEGATIVE (Negative); URINE BLOOD NEGATIVE (Negative); URINE CLARITY CLEAR; URINE COLOR YELLOW; URINE GLUCOSE-RANDOM* NEGATIVE (Negative); URINE KETONES NEGATIVE (Negative); URINE LEUKOCYTES-REFLEX NEGATIVE (Negative); URINE NITRITE-REFLEX NEGATIVE (Negative); URINE PROTEIN (DIPSTICK) NEGATIVE (Negative); URINE SPECIFIC GRAVITY 1.015 (1.005-1.035); URINE UROBILINOGEN 0.2 E.U./dl (0.2-1.0)
[2019-03-24 08:42] LABS: ABSOLUTE NEUTROPHILS 3.9 thou/uL (1.4-8.2); BASOPHILS 0.5 % (0.0-2.0); EOSINOPHILS 2.1 % (0.0-3.0); HEMATOCRIT 38.4 % (37.0-47.0); LYMPHOCYTES 20.3 % (24.0-44.0); MCH 27.7 pg (26.0-34.0); MCHC 33.9 g/dL (28.0-37.0); MCV 81.7 fL (80.0-100.0); MONOCYTES 5.1 % (1.0-8.0); PLATELET COUNT 225 thou/uL (150-400); RBC 4.71 mil/uL (4.20-5.00); RDW 16.9 % (10.5-14.5); WBC 5.5 thou/uL (4.0-11.0)
[2019-03-24 08:49] LABS: CALCIUM 9.1 mg/dL (8.5-10.1); CREATININE 0.9 mg/dL (0.6-1.0); POTASSIUM 3.7 mmol/L (3.5-5.1)
[2019-03-24 08:55] LABS: ALBUMIN 3.2 g/dL (3.4-5.0); TOTAL BILIRUBIN 0.4 mg/dL (<0.1-1.0); TOTAL PROTEIN 6.7 g/dL (6.4-8.2)
[2019-03-24 10:30] VITALS: BP 136/82
[2019-03-24] MEDS ORDERED: PROTONIX40 MG PO (10:32)
[2019-03-24] MEDS ORDERED: ZOFRAN ODT4 MG PO (10:32)
== END 2019-03-24 10:30 | disposition home or self-care (01) ==
LOC: ER 07:51
PROVIDERS: Emergency Medicine
DX: R10.13 Epigastric pain (principal); G89.29 Other chronic pain; R10.11 Right upper quadrant pain; R11.2 Nausea with vomiting, unspecified; F17.210 Nicotine dependence, cigarettes, uncomplicated; K21.9 Gastro-esophageal reflux disease without esophagitis; E11.9 Type 2 diabetes mellitus without complications; I10 Essential (primary) hypertension; J44.9 Chronic obstructive pulmonary disease, unspecified; I25.10 Atherosclerotic heart disease of native coronary artery without angina pectoris; F32.9 Major depressive disorder, single episode, unspecified; M81.0 Age-related osteoporosis without current pathological fracture; I73.9 Peripheral vascular disease, unspecified; Z79.4 Long term (current) use of insulin; Z88.8 Allergy status to other drugs, medicaments and biological substances; Z91.041 Radiographic dye allergy status; Z91.013 Allergy to seafood

== ENCOUNTER 2020-01-08 14:45 | Emergency (ER) | payer OTHER ==
[~2020-01-08] VITALS: Ht 157.5 cm; Wt 111.6 kg
[2020-01-08 15:45] LABS: ABSOLUTE NEUTROPHILS 9.8 thou/uL (1.4-8.2); BASOPHILS 0.5 % (0.0-2.0); EOSINOPHILS 0.5 % (0.0-3.0); HEMATOCRIT 41.2 % (37.0-47.0); HEMOGLOBIN 13.8 gm/dL (12.0-15.0); LYMPHOCYTES 8.3 % (24.0-44.0); MCH 27.9 pg (26.0-34.0); MCHC 33.5 g/dL (28.0-37.0); MCV 83.2 fL (80.0-100.0); MONOCYTES 4.7 % (1.0-8.0); PLATELET COUNT 239 thou/uL (150-400); RBC 4.95 mil/uL (4.20-5.00); RDW 16.2 % (10.5-14.5); WBC 11.4 thou/uL (4.0-11.0)
[2020-01-08 15:55] LABS: CALCIUM 9.1 mg/dL (8.5-10.1); CREATININE 1.1 mg/dL (0.6-1.0); POTASSIUM 3.8 mmol/L (3.5-5.1)
[2020-01-08] MEDS ORDERED: NORCO 5-325 TA1 EAC1 PO (16:48)
[2020-01-08] MEDS ORDERED: BACTRIM DS TAB1 EACH PO (16:48)
[2020-01-08] MEDS ORDERED: DIFLUCAN200 MG PO (16:52)
[2020-01-08 16:59] VITALS: BP 115/78
== END 2020-01-08 17:00 | disposition home or self-care (01) ==
LOC: ER 14:45
PROVIDERS: Nurse Practitioner Family
DX: L02.211 Cutaneous abscess of abdominal wall (principal); K21.9 Gastro-esophageal reflux disease without esophagitis; I10 Essential (primary) hypertension; J44.9 Chronic obstructive pulmonary disease, unspecified; I25.10 Atherosclerotic heart disease of native coronary artery without angina pectoris; I25.2 Old myocardial infarction; F32.9 Major depressive disorder, single episode, unspecified; M19.90 Unspecified osteoarthritis, unspecified site; E11.51 Type 2 diabetes mellitus with diabetic peripheral angiopathy without gangrene; F17.210 Nicotine dependence, cigarettes, uncomplicated; Z79.899 Other long term (current) drug therapy; Z79.4 Long term (current) use of insulin; Z79.82 Long term (current) use of aspirin; Z88.8 Allergy status to other drugs, medicaments and biological substances; Z91.041 Radiographic dye allergy status; Z91.013 Allergy to seafood

== ENCOUNTER 2020-01-28 08:25 | Emergency (ER) | payer OTHER ==
[~2020-01-28] VITALS: Ht 157.5 cm; Wt 108.9 kg
[~2020-01-28 08:25] MED LIST changes: +BACTRIM DS TAB1 EACH PO; +DIFLUCAN200 MG PO; +NORCO 5-325 TA1 EAC1 PO
[2020-01-28 09:53] LABS: WBC 11.3 thou/uL (4.0-11.0)
[2020-01-28 09:55] LABS: HEMATOCRIT 39.3 % (37.0-47.0); HEMOGLOBIN 13.3 gm/dL (12.0-15.0); MCHC 33.8 g/dL (28.0-37.0); MCV 82.7 fL (80.0-100.0); RBC 4.74 mil/uL (4.20-5.00); RDW 16.4 % (10.5-14.5)
[2020-01-28 10:11] LABS: ANION GAP 9 mmol/L (7-16); BUN 12 mg/dL (7-18); CHLORIDE 95 mmol/L (98-107); CO2 26 mmol/L (21-32); CREATININE 0.9 mg/dL (0.6-1.0); GLUCOSE 381 mg/dL (74-106); SODIUM 130 mmol/L (136-145)
[2020-01-28 10:16] LABS: POTASSIUM 5.3 mmol/L (3.5-5.1)
[2020-01-28 10:21] LABS: ALBUMIN 2.8 g/dL (3.4-5.0); LIPASE 32 U/L (73-393); SGOT 25 U/L (15-37); SGPT 14 U/L (30-65); TOTAL BILIRUBIN 0.7 mg/dL (0.2-1.0); TOTAL PROTEIN 6.7 g/dL (6.4-8.2); TROPONIN-I <0.06 ng/mL (<0.06)
[2020-01-28 10:22] LABS: URINE BILIRUBIN NEGATIVE (Negative); URINE BLOOD NEGATIVE (Negative); URINE CLARITY CLEAR; URINE COLOR YELLOW; URINE GLUCOSE-RANDOM* 3+ (Negative); URINE KETONES 1+ (Negative); URINE LEUKOCYTES-REFLEX NEGATIVE (Negative); URINE NITRITE-REFLEX NEGATIVE (Negative); URINE PROTEIN (DIPSTICK) NEGATIVE (Negative); URINE UROBILINOGEN 0.2 E.U./dl (0.2-1.0)
[2020-01-28 11:31] LABS: ABSOLUTE NEUTROPHILS 9.3 thou/uL (1.4-8.2); PLATELET COUNT 184 thou/uL (150-400); PLATELET ESTIMATE NORMAL
[2020-01-28] MEDS ORDERED: TRAMADOL 50 MG50 MG PO (12:55)
[2020-01-28] MEDS ORDERED: ONDANSETRON ODT8 MG PO (12:55)
[2020-01-28] MEDS ORDERED: CLINDAMYCIN HC300 MG PO (12:55)
[2020-01-28 13:59] VITALS: BP 135/81
--- NOTE | 2020-01-29 08:38 | EKG ---
[facility] [place] [address] ELECTROCARDIOGRAM REPORT Name: PRITI MCLAUGHLIN Room #: DEP [facility]#: [id number] Admission: 01/28/20 Attend Phys: Discharge: 01/28/20 Date of : 62 Report #: [id number] THIS REPORT FOR: cc: FAM - Family physician unknown FAM - Family physician unknown Nagi Thompson MD [facility] THIS REPORT FOR: //name// [facility] ED Test Date: 2020-01-28 Test Time: 09:49:31 Pat Name: PRITI MCLAUGHLIN Department: Room: Gender: F Cleaning Supervisor: : 1960 Requested By: Rustam Whipple Order Number: [id number] MD: Nagi Thompson Measurements Intervals [place] Rate: 81 P: 43 [place]: 140 QRS: 20 QRSD: 84 T: 12 QT: 363 QTc: 422 Interpretive Statements Sinus rhythm Normal tracing Compared to ECG 11/11/2018 15:43:55 T-wave abnormality no longer present Electronically Signed On 01-29-2020 8:38:01 CDT by Nagi Thompson [email or web address] <ELECTRONICALLY SIGNED> By: Nagi Thompson MD, [facility] 01/29/20 0838 0949 Nagi Thompson MD, [facility] /EPI
== END 2020-01-28 14:00 | disposition home or self-care (01) ==
LOC: ER 08:25
PROVIDERS: Emergency Medicine
DX: R11.2 Nausea with vomiting, unspecified (principal); L02.211 Cutaneous abscess of abdominal wall; R10.10 Upper abdominal pain, unspecified; K21.9 Gastro-esophageal reflux disease without esophagitis; I10 Essential (primary) hypertension; J44.9 Chronic obstructive pulmonary disease, unspecified; I25.10 Atherosclerotic heart disease of native coronary artery without angina pectoris; I25.2 Old myocardial infarction; F32.9 Major depressive disorder, single episode, unspecified; M19.90 Unspecified osteoarthritis, unspecified site; E11.40 Type 2 diabetes mellitus with diabetic neuropathy, unspecified; E11.51 Type 2 diabetes mellitus with diabetic peripheral angiopathy without gangrene; E66.01 Morbid (severe) obesity due to excess calories; F17.210 Nicotine dependence, cigarettes, uncomplicated; Z79.2 Long term (current) use of antibiotics; Z79.899 Other long term (current) drug therapy; Z79.4 Long term (current) use of insulin; Z88.8 Allergy status to other drugs, medicaments and biological substances; Z91.041 Radiographic dye allergy status; Z91.013 Allergy to seafood; Z68.30 Body mass index [BMI] 30.0-30.9, adult